=== PATIENT | female | born 1965 | race Caucasian/White ===

== ENCOUNTER 2018-01-01 11:03 | Emergency (ER) | payer OTHER ==
[2018-01-01 11:19] VITALS: BMI 25.4
--- NOTE | 2018-01-01 11:24 | PDOC ---
Attending Attestation - Resident Resident Name: Mariana Spencer - ED Attending Attestation I have performed the following: I have examined & evaluated the patient, The case was reviewed & discussed with the resident, I agree w/resident's findings & plan, Exceptions are as noted - HPI HPI: 01/01/18 11:24 52y F hx of asthma presents with intermittent abd pain that radiates to the R shoulder associated nbnb vomiting since last night. tolerating PO intake. Patient notes that the pain is in epigastrium and right upper quadrant, she notes that the pain was sharp and worse yesterday it is slightly improved today. Patient notes last episode of vomiting was last at approximately 11:00 she has not vomited since. Denies any fever, chills, chest pain, shortness of breath, diaphoresis, diarrhea, dysuria. On exam the patient is well-appearing, no acute distress abd exam reveals mild tenderness in the right upper quadrant and epigastrium, no rebound/guarding card: rrr, no mrg pulm: cta b/l differential for the patient's symptoms include possible pancreatitis, consider cholelithiasis, low suspicion possible ACS will obtain a EKG - Physicial Exam PE: 01/02/18 11:29 see above - Medical Decision Making 01/01/18 15:15 His blood work was reviewed was unremarkable pts US negative pt feeling better. tolerrating po intake here will dc with pmd fu return precuautions were discussed Heart Score/ECG Review - ECG Impressions Comment:: 01/01/18 12:31 Twelve-lead EKG was performed and reviewed by me. There is normal sinus rhythm with a rate of 59 The axis is normal. The intervals are normal. There is normal R wave progression There are no ST or T wave abnormalities. q wave in III
[2018-01-01] MEDS ORDERED: SODIUM CHLORIDE 0.9% 500 ML INFUS.BAG IV ONE (11:27)
[2018-01-01] MEDS ORDERED: ONDANSETRON 4 MG/2 ML VIAL IVPUSH ONE (11:28)
--- NOTE | 2018-01-01 11:28 | PDOC ---
History of Present Illness - General Chief Complaint: Pain Stated Complaint: ABD PAIN Time Seen by Provider: 01/01/18 11:10 - History of Present Illness Initial Comments: 01/01/18 11:30 Patient is a 52 year old female with a PMH of asthma who presents to our ED c/o 2 day h/o abdominal pain. Pain is epigastric, intermittent, "stabbing" and radiates to her R shoulder/back. Endorses multiple episodes of NBNB emesis. Tolerating PO intake, last BM was prior to presentation this morning and was normal. Patient notes she was at a family alliance party on Monday night consumed a large amount of wine. Patient cannot recall how much wine she drank but states she drank at least a bottle of red wine by herself. Denies any previous h/o similar pain. No family h/o cardiac issues. States she has not used her daily Ventolin inhaler for 1 week since she ran out of her medications. NKDA Surgical: hysterectomy Social: denies nicotine, denies recreational drugs, alcohol as noted in HPI PMD: Cannot recall name @ [facility] As per EMR, patient last evaluated in our ED in 01/2015 for headache which improved with symptomatic treatment. Past History - Past Medical History Allergies/Adverse Reactions: Allergies Allergy/AdvReac Type Severity Reaction Status Date / Time No Known Allergies Allergy Verified 01/01/18 12:07 Home Medications: Ambulatory Orders Acetaminophen/Caffeine/Butalb [Fioricet -] 1 tab PO Q6H #28 tablet 01/22/15 Anemia: Yes Asthma: Yes Cancer: No Cardiac Disorders: No CVA: No COPD: No CHF: No Dementia: No Diabetes: No GI Disorders: No Disorders: No HTN: No Hypercholesterolemia: No Liver Disease: No Seizures: No Thyroid Disease: No - Reproductive History (#): 7 Para: 5 Therapeutic (s) & number: Yes (2) - Suicide/Smoking/Psychosocial Hx Smoking History: Never smoked Have you smoked in the past 12 months: No Information on smoking cessation initiated: No Hx Alcohol Use: No Drug/Substance Use Hx: No Substance Use Type: None Hx Substance Use Treatment: No Review of Systems - Review of Systems Constitutional: No: Chills, Fever HEENTM: No: Blurred Vision, Double Vision Respiratory: Yes: Shortness of Breath. No: Cough Cardiac (ROS): No: Chest Pain, Lightheadedness, Palpitations ABD/GI: Yes: Nausea, Vomiting. No: Constipated, Diarrhea : No: Burning, Dysuria *Physical Exam - Vital Signs Last Vital Signs Temp Pulse Resp BP Pulse Ox 97.9 F 80 18 186/89 100 01/01/18 11:10 01/01/18 11:10 01/01/18 11:10 01/01/18 11:10 01/01/18 11:10 - Physical Exam General Appearance: Yes: Nourished, Appropriately Dressed HEENT: positive: EOMI, LUISA, Normal Voice, Hearing Grossly Normal Neck: positive: Trachea midline, Supple Respiratory/Chest: positive: Lungs Clear, Normal Breath Sounds. negative: Labored Respiration, Rapid RR, Crackles, Rales, Rhonchi, Stridor, Wheezing Cardiovascular: positive: S1, S2 ED Treatment Course - LABORATORY CBC & Chemistry Diagram: 01/01/18 11:26 01/01/18 11:26 Medical Decision Making - Medical Decision Making 01/01/18 11:43 52 year old female presents with abdominal pain. H/o recent binge drinking. No cardiac risk factors of smoking, HTN, obesity. VS unremarkable, epigastric TTP. Frontal diagnosis: alcoholic gastritis, pancreatitis, r/o ACS -- though less likely. Will obtain CBC, CMP, EKG, Troponin (x1) + IV fluids, Zofran. Reassess. 01/01/18 13:19 CBC, CMP unremarkable Lipase wnL As patient on re-exam c/o pain in RUQ, will evaluate for cholecystitis with RUQ ultrasound. 01/01/18 14:50 GB U/S negative for acute cholecystitis/biliary pathology 01/01/18 14:58 Patient symptomatically improved. Tolerating PO intake, ambulatory around unit. Will discharge home with return precautions and PMD follow-up. I discussed the physical exam findings, ancillary test results and final diagnoses with the patient. I answered all of the patient's questions. The patient was satisfied with the care received and felt comfortable with the discharge plan and treatment plan. The patient will return to the Emergency Department with any new, persistent or worsening symptoms. *DC/Admit/Observation/Transfer Diagnosis at time of Disposition: Abdominal pain - Discharge Dispostion Disposition: HOME Condition at time of disposition: Good Decision to Admit order: No - Referrals Referrals: Angus Ventura MD [Primary Care Provider] - - Patient Instructions Additional Instructions: You were evaluated today for your abdominal pain. All of your labs and an ultrasound of your abdomen showed no concerning findings. Increase your fluid intake and you can take Tylenol (up to 4000 mg daily) for your pain. Please follow-up with your primary care doctor in the next 2 days. A copy of your ultrasound and your labs have been provided to you. Please take these to your appointment. Also make sure to request refills of your asthma medication as needed. Return to the Emergency Department for any new/worsening/concerning symptoms. Hoy fuiste evaluado por tu dolor abdominal. Todos kari laboratorios y francia ecografa de spaulding abdomen no mostraron hallazgos preocupantes. Aumente spaulding consumo de lquidos y puede vibha Tylenol (hasta 4000 mg diarios) para spaulding dolor. Maulik un seguimiento con spaulding mdico de atencin primaria en los prximos 2 de la garza. Francia copia de spaulding ultrasonido y kari laboratorios le shore sido provistos. Por favor , llvelos a spaulding romina. Adems, asegrese de solicitar la reposicin de spaulding medicamento para el asma segn sea necesario. Regrese al Departamento de Emergencia para cualquier nuevo / empeoramiento / sntomas relacionados. - Post Discharge Activity
[2018-01-01 11:43] LABS: BASO % 0.8 % (0-2.0); EOS % 0.8 % (0-4.5); HEMATOCRIT 38.7 % (32.4-45.2); HEMOGLOBIN 13.2 GM/dL (10.7-15.3); LYMPH % 25.6 % (8-40); MCH 30.8 pg (25.7-33.7); MCHC 34.1 g/dl (32.0-36.0); MEAN CELL VOLUME 90.4 fl (80-96); NEUT % 67.8 % (42.8-82.8); PLATELET COUNT 278 K/MM3 (134-434); RBC 4.29 M/mm3 (3.60-5.2); RDW 13.6 % (11.6-15.6); WHITE BLOOD COUNT 10.7 K/mm3 (4.0-10.0)
[2018-01-01] MEDS ORDERED: ONDANSETRON 4 MG/2 ML VIAL ONE (11:59)
[2018-01-01 12:50] LABS: ALBUMIN 3.8 g/dl (3.4-5.0); ALK PHOS 90 U/L (45-117); ANION GAP 9 MMOL/L (8-16); BILIRUBIN,TOTAL 0.3 mg/dL (0.2-1); BLOOD UREA NITROGEN 12 mg/dL (7-18); CALCIUM 8.8 mg/dL (8.5-10.1); CHLORIDE 110 mmol/L (98-107); CO2 25 mmol/L (21-32); CREATININE 0.5 mg/dL (0.55-1.3); GLUCOSE,RANDOM 104 mg/dL (74-106); LIPASE 91 U/L (73-393); POTASSIUM 3.5 mmol/L (3.5-5.1); SGOT/AST 25 U/L (15-37); SGPT/ALT 31 U/L (13-61); SODIUM 144 mmol/L (136-145); TOT PROT 7.8 g/dl (6.4-8.2)
[2018-01-01 16:46] VITALS: BP 130/69; PULSE 74; TEMP 98
--- NOTE | 2018-01-01 18:07 | EKG ---
Test Reason : Blood Pressure : / mmHG Vent. Rate : 059 BPM Atrial Rate : 059 BPM P-R Int : 146 ms QRS Dur : 084 ms QT Int : 414 ms P-R-T Axes : 057 057 035 degrees QTc Int : 409 ms SINUS BRADYCARDIA WITH SINUS ARRHYTHMIA OTHERWISE NORMAL ECG WHEN COMPARED WITH ECG OF 28-NOV-2013 11:24, NO SIGNIFICANT CHANGE WAS FOUND Confirmed by MODE MIMS MD ([id number]) on 01/01/2018 6:06:52 PM Referred By: Confirmed By:MODE MIMS MD
== END 2018-01-01 15:09 | disposition home or self-care (01) ==
LOC: JER 11:03
PROC: 3E033GC Introduction of Other Therapeutic Substance into Peripheral Vein, Percutaneous Approach (ICD-10-PCS; principal; 2018-01-01)
DX: R10.9 Unspecified abdominal pain (principal)
CPT/HCPCS: 36415; 76705-TC; 80053; 82550; 82553; 83690; 84484; 85025; 93005; 93010; 96374; 99283-25

== ENCOUNTER 2018-01-03 11:53 | Emergency (ER) | payer OTHER ==
[2018-01-03 12:06] VITALS: TEMP 98; BMI 26.4
[2018-01-03] MEDS ORDERED: LACTATED RINGERS SOLUTION 1,000 ML IV STA (12:51)
[2018-01-03] MEDS ORDERED: ONDANSETRON 4 MG/2 ML VIAL IVPUSH ONE (12:51)
[2018-01-03] MEDS ORDERED: FAMOTIDINE 20 MG/50 ML IVPB 20 MG/50 ML MG IVPB ONE ×2 (12:51→13:26)
[2018-01-03] MEDS ORDERED: ONDANSETRON 4 MG/2 ML VIAL ONE (13:04)
[2018-01-03 13:32] LABS: BASO % 0.4 % (0-2.0); HEMATOCRIT 39.4 % (32.4-45.2); HEMOGLOBIN 13.3 GM/dL (10.7-15.3); LYMPH % 20.8 % (8-40); MCH 30.3 pg (25.7-33.7); MCHC 33.6 g/dl (32.0-36.0); MEAN CELL VOLUME 90.3 fl (80-96); MEAN PLT VOLUME 9.3 fl (7.5-11.1); MONO % 5.7 % (3.8-10.2); NEUT % 72.1 % (42.8-82.8); PLATELET COUNT 268 K/MM3 (134-434); RBC 4.37 M/mm3 (3.60-5.2); RDW 13.2 % (11.6-15.6); WHITE BLOOD COUNT 8.9 K/mm3 (4.0-10.0)
[2018-01-03] MEDS ORDERED: MAG HYDROX/AL HYDROX/SIMETH 30 ML UNIT-DOSE CUP PO ONE (13:59)
--- NOTE | 2018-01-03 14:01 | PDOC ---
History of Present Illness - General Chief Complaint: Pain Stated Complaint: REVISIT, ABD PAIN Time Seen by Provider: 01/03/18 12:53 - History of Present Illness Initial Comments: 01/03/18 14:21 Ms Diggs is a 52-year-old female, with a past medical history of anemia and asthma, who presents to the ED for 4 days of epigastric pain. The patient was seen in the ED on 01/01/18 with similar symptoms after binge drinking the night before. US was taken and was negative for biliary etiology or stones. She reports visiting her PCPs office on Monday where she was given anti-gas medication and told to follow up with GI for an endoscopy. The patient has an upcoming appointment with GI in January. She visited and Urgent Care because she was having persistent pain and was sent to the ED for an endoscopy. The patient denies any fever, chills, nausea, vomiting, diarrhea, or hematochezia. Past History - Past Medical History Allergies/Adverse Reactions: Allergies Allergy/AdvReac Type Severity Reaction Status Date / Time No Known Allergies Allergy Verified 01/03/18 12:00 Home Medications: Ambulatory Orders Famotidine [Pepcid -] 20 mg PO DAILY #14 tablet 01/03/18 Mag Hydrox/Al Hydrox/Simeth [Mylanta Suspension -] 30 ml PO Q6H #1 bottle Anemia: Yes Asthma: Yes Cancer: No Cardiac Disorders: No CVA: No COPD: No CHF: No Dementia: No Diabetes: No GI Disorders: No Disorders: No HTN: No Hypercholesterolemia: No Liver Disease: No Seizures: No Thyroid Disease: No - Reproductive History (#): 7 Para: 5 Therapeutic (s) & number: Yes (2) - Suicide/Smoking/Psychosocial Hx Smoking History: Never smoked Have you smoked in the past 12 months: No Hx Alcohol Use: No Drug/Substance Use Hx: No Substance Use Type: None Hx Substance Use Treatment: No Review of Systems - Review of Systems Able to Perform ROS?: Yes Comments:: 01/03/18 14:00 Constitutional: no fevers or chills. HEENT: no headache or dizziness. CVS: no cp or syncope. Resp: no sob. Abdomen: +abdominal pain, no nausea or vomiting, diarrhea or constipation. no bloody stools. : no urinary sx, hematuria. MUSCULOSKELETAL: No joint pain and swelling. No neck or back pain. SKIN: no redness or skin changes, no discharge, no rash. Hematologic: no easy bruising/bleeding. NEUROLOGIC: No headache, dizziness, LOC or altered mental status. No weakness, numbness or tingling. All other systems reviewed and negative, or as documented in HPI. *Physical Exam - Vital Signs Last Vital Signs Temp Pulse Resp BP Pulse Ox 98 F 70 16 161/92 99 01/03/18 12:00 01/03/18 12:00 01/03/18 12:00 01/03/18 12:00 01/03/18 12:00 - Physical Exam Comments: 01/03/18 14:00 General: Well appearing, awake and alert, NAD. HEENT: NCAT, PERRL, EOMI, clear conjunctiva, anicteric, moist mucus membranes, clear oropharynx, no oral lesions.. Neck: neck supple, FROM Resp: CTAB, normal and even respirations, no respiratory distress CVS: RRR, no murmurs, 2+ peripheral pulses throughout, no peripheral edema Abdomen: soft, +epigastric TTP, no rebound or guarding. no Santoyo's sign., no peritoneal signs. Back: nontender, normal inspection and ROM. No CVAT. MSK: no edema, THOMAS x4, ROM intact. No clubbing or cyanosis. normal bulk and tone. Neuro: alert, oriented appropriately. Skin: warm and well perfused, cap refill <2 sec, normal color 01/03/18 14:24 Heart Score/ECG Review - ECG Impressions Comment:: 01/03/18 14:07 EKG normal sinus rhythm, no interval abnormalities, narrow QRS, ST and T wave segments and morphology normal. Nonspecific T wave abnormalities in III, w/o contiguous lead changes. ED Treatment Course - LABORATORY CBC & Chemistry Diagram: 01/03/18 13:11 01/03/18 13:11 - ADDITIONAL ORDERS Additional order review: 01/03/18 13:11 RBC 4.37 MCV 90.3 MCHC 33.6 RDW 13.2 MPV 9.3 Neutrophils % 72.1 Lymphocytes % 20.8 Monocytes % 5.7 Eosinophils % 1.0 Basophils % 0.4 - Medications Given in the ED: ED Medications Discontinued Medications Generic Name Dose Route Start Last Admin Trade Name Freq PRN Reason Stop Dose Admin Lactated Ringer's 1,000 mls @ 1,000 mls/hr 01/03/18 12:51 01/03/18 13:25 Lactated Ringers Solution IV 01/03/18 13:50 1,000 mls/hr ONCE STA Administration Famotidine/Sodium Chloride 20 mg in 50 mls @ 100 mls/hr 01/03/18 12:51 13:31 Pepcid 20 Mg Premixed Ivpb - IVPB 01/03/18 13:20 100 mls/hr ONCE ONE Administration Ondansetron HCl 4 mg 01/03/18 12:51 01/03/18 13:25 Zofran Injection IVPUSH 01/03/18 12:52 4 mg ONCE ONE Administration Medical Decision Making - Medical Decision Making 01/03/18 14:06 Dontae 52 YOF with h/o Asthma presenting with epigastric AP x 4 days. Initially seen 01/01/18 with similar sx in setting of ETOH binge drinking, RUQ sono neg for biliary etiology/stones. Followed up with PMD< given anti-gas meds, told to f/u GI which she has appt for in January. Went to urgent care, sent here for Endoscopy. Denies bloody stools, v/d, fever or chills, cp or sob, urinary sx or neuro changes. Tolerating PO w/o difficulty, denies chronic NSAID use. DDx abdominal pain: GERD, PUD, esophageal spasm, pancreatitis, hepatitis, biliary colic, UTI, pyelonephritis ,medication side effect, hernia, -doubt appy or diverticulitis w/o Bm changes or lower quad tenderness, abdomen benign, with mild epigastric TTP w/o peritoneal findings or murphys sign. given pepcid, maalox, IVF, zofran, with clinical improvement. NAD, well appearing. abdomen soft and benign, non peritoneal to suggest intra abdominal pathology. Potassium repleted, requesting food and tolerating juice/crackers. Reassuringly had RUQ sono 2 days ago neg for pathology. no stones to suggest acute marty and neg for santoyo's sign. Basic labs including LFTs/lipase wnl, reassuring. trop neg, clinically doubt ACS or CVS pathology as no cp or sob.. EKG normal sinus rhythm, no interval abnormalities, narrow QRS, ST and T wave segments and morphology normal. Nonspecific T wave abnormalities in III, w/o contiguous lead changes. dispo: Pt to be discharged in stable condition. Patient and family made aware of impression and plan, return precautions discussed (including but not limited to worsening pain or symptoms), fevers, or signs of infection, chest pain, respiratory distress, inability to tolerate oral intake, bloody stools, Bowel movement changes, dehydration, syncope, or neurologic changes). Follow up with PMD and/or GI specialist as recommended, follow up information provided, take medications as instructed for duration of time. continue with supportive care, avoid triggers and precipitants. All questions answered to patient's satisfaction and expressed understanding and comfort with this. rx OTC pepcid and maalox PRN for sx, including heartburn. information provided in french. 01/03/18 14:21 *DC/Admit/Observation/Transfer Diagnosis at time of Disposition: Epigastric abdominal pain - Discharge Dispostion Disposition: HOME Condition at time of disposition: Good Decision to Admit order: No - Prescriptions Prescriptions: Famotidine [Pepcid -] 20 mg PO DAILY #14 tablet Mag Hydrox/Al Hydrox/Simeth [Mylanta Suspension -] 30 ml PO Q6H #1 bottle - Referrals Referrals: Rosalie Puckett DO [Staff Physician] - [facility] [Provider Group] Kirit Lemus MD [Staff Physician] - - Patient Instructions Printed Discharge Instructions: DI for Gastroesophageal Reflux Disease (GERD), DI for Abdominal Pain-Adult, GERD Diet Additional Instructions: Your laboratory / imaging results were normal, including enzymes for liver and pancreas and heart. you have no symptoms such as bleeding to warrant emergent endoscopy, follow up with your alarm adjuster for outpatient management and evaluation and endoscopy. your ultrasound from this week was negative for stones or gallbladder pathology. Follow up with your physician and consultants as instructed, take your medications as instructed including Pepcid daily, maalox or mylanta with your food 3-4 times per day, avoid precipitants such as anti inflammatories, fatty foods, spicy foods or triggers. Return if worsening symptoms including fevers, headache, vomiting, bleeding, bowel movement changes, worsening abdominal pain, fainting, dehydration, inability to take things by mouth/vomiting, altered mental status, or worsening concerning symptoms. your medications on discharge include pepcid and maalox over the counter, effects may improve your upset stomach, abdominal pain, vomiting, or diarrhea. do not drink alcohol with your medications. Kari resultados de laboratorio / imagen fueron normales, incluidas las enzimas para el hgado y el pncreas y el corazn. no tiene sntomas sandy hemorragia que justifique francia endoscopia de emergencia, maulik un seguimiento con spaulding gastroenterlogo para el manejo ambulatorio y evaluacin y endoscopia. spaulding ultrasonido de esta semana fue negativo para clculos o patologa de la vescula biliar. Maulik un seguimiento con spaulding mdico y consultores segn las instrucciones, tome kari medicamentos segn las instrucciones, incluyendo Pepcid daily, maalox o mylanta con kari alimentos 3-4 veces por da, evite precipitantes sandy antiinflamatorios, alimentos grasosos, comidas picantes o desencadenantes. Retorna si empeora los sntomas, incluyendo fiebre, dolor de malena, vmitos, hemorragia, cambios en el movimiento intestinal, empeoramiento del dolor abdominal, desmayos, deshidratacin, incapacidad para vibha cosas por la boca / vmitos, alteracin del estado mental o empeoramiento de los sntomas. kari medicamentos al momento del jonathan incluyen pepcid y maalox sin receta, los efectos pueden mejorar spaulding malestar estomacal, dolor abdominal, vmitos o diarrea. no bebas alcohol con tus medicamentos Print Language: CROATIAN - Post Discharge Activity - Attestations Physician Attestion: 01/03/18 14:01 I, Frannie Porras MD, attest that this document has been prepared under my direction and personally reviewed by me in its entirety. I further attest, that it accurately reflects all work, treatment, procedures and medical decision -making performed by me.
[2018-01-03 14:02] LABS: ALBUMIN 3.6 g/dl (3.4-5.0); ALK PHOS 98 U/L (45-117); ANION GAP 6 MMOL/L (8-16); BILIRUBIN,TOTAL 0.8 mg/dL (0.2-1); BLOOD UREA NITROGEN 7 mg/dL (7-18); CALCIUM 8.8 mg/dL (8.5-10.1); CHLORIDE 104 mmol/L (98-107); CO2 29 mmol/L (21-32); CREATININE 0.6 mg/dL (0.55-1.3); GLUCOSE,RANDOM 114 mg/dL (74-106); LIPASE 67 U/L (73-393); POTASSIUM 3.2 mmol/L (3.5-5.1); SGOT/AST 31 U/L (15-37); SGPT/ALT 46 U/L (13-61); SODIUM 140 mmol/L (136-145); TOT PROT 7.8 g/dl (6.4-8.2)
[2018-01-03] MEDS ORDERED: MAG HYDROX/AL HYDROX/SIMETH 30 ML UNIT-DOSE CUP ONE (14:04)
[2018-01-03] MEDS ORDERED: POTASSIUM CHLORIDE TABS 20 MEQ TABLET.ER (FP) PO ONE (14:07)
[2018-01-03 14:29] VITALS: BP 145/84; PULSE 84
--- NOTE | 2018-01-03 15:08 | EKG ---
Test Reason : Blood Pressure : / mmHG Vent. Rate : 076 BPM Atrial Rate : 076 BPM P-R Int : 148 ms QRS Dur : 086 ms QT Int : 382 ms P-R-T Axes : 039 036 037 degrees QTc Int : 429 ms NORMAL SINUS RHYTHM NORMAL ECG WHEN COMPARED WITH ECG OF 01-JAN-2018 12:29, NO SIGNIFICANT CHANGE WAS FOUND Confirmed by NIDHI KAY MD ([id number]) on 01/03/2018 3:07:55 PM Referred By: Confirmed By:NIDHI KAY MD
== END 2018-01-03 14:30 | disposition home or self-care (01) ==
LOC: JER 11:53
PROC: 3E033GC Introduction of Other Therapeutic Substance into Peripheral Vein, Percutaneous Approach (ICD-10-PCS; principal; 2018-01-03)
PROC: 3E0337Z Introduction of Electrolytic and Water Balance Substance into Peripheral Vein, Percutaneous Approach (ICD-10-PCS; 2018-01-03)
DX: R10.13 Epigastric pain (principal); J45.909 Unspecified asthma, uncomplicated
CPT/HCPCS: 36415; 80053; 83690; 84484; 85025; 93005; 93010; 99283-25

== ENCOUNTER 2018-11-23 15:17 | Emergency (ER) | payer OTHER ==
[2018-11-23 15:29] VITALS: BMI 26.2
--- NOTE | 2018-11-23 15:29 | PDOC ---
Rapid Medical Evaluation Chief Complaint: Back Pain Time Seen by Provider: 11/23/18 15:24 Medical Evaluation: Allergies Allergy/AdvReac Type Severity Reaction Status Date / Time No Known Allergies Allergy Verified 01/03/18 12:00 11/23/18 15:24 I have performed a brief in-person evaluation of this patient. The patient presents with a chief complaint of: left upper back pain worsening x 4 days- seen by PMD 3 days ago and referred to PT and seen yesterday. Now with some numbness to left flank/ and around to abd Pertinent physical exam findings: + palp tension and spasm. I have ordered the following: EKG The patient will proceed to the ED for further evaluation. Discharge Disposition - Diagnosis Back pain - Referrals - Patient Instructions - Post Discharge Activity
--- NOTE | 2018-11-23 17:27 | PDOC ---
History of Present Illness - General Chief Complaint: Pain Stated Complaint: ABD PAIN Time Seen by Provider: 11/23/18 15:24 History Source: Patient - History of Present Illness Initial Comments: 11/23/18 17:21 53 year old female c/o LUQ pain radiating to the back x 5 days.denies fever/ chills, nausea, vomiting, chest pain , URINARY SYMPTOMS. patient reports she has been exercising. denies trauma/ injury PMHX, hypertension 11/23/18 18:46 Past History - Past Medical History Allergies/Adverse Reactions: Allergies Allergy/AdvReac Type Severity Reaction Status Date / Time No Known Allergies Allergy Verified 11/23/18 15:26 Home Medications: Ambulatory Orders Cyclobenzaprine HCl 10 mg PO DAILY PRN 11/23/18 Ibuprofen 600 mg PO QID PRN #20 tablet 11/23/18 Anemia: Yes Asthma: Yes Cancer: No Cardiac Disorders: No CVA: No COPD: No CHF: No Dementia: No Diabetes: No GI Disorders: No Disorders: No HTN: No Hypercholesterolemia: No Liver Disease: No Seizures: No Thyroid Disease: No - Family Disease History Family Disease History: Other: Mother (hypertension. no cardiac history) - Reproductive History (#): 7 Para: 5 Therapeutic (s) & number: Yes (2) - Immunization History Immunization Up to Date: Yes - Suicide/Smoking/Psychosocial Hx Smoking History: Never smoked Have you smoked in the past 12 months: No Information on smoking cessation initiated: No Hx Alcohol Use: No Drug/Substance Use Hx: No Substance Use Type: None Hx Substance Use Treatment: No Review of Systems - Review of Systems Able to Perform ROS?: Yes Is the patient limited Kyrgyz proficient: No Constitutional: No: Symptoms Reported, See HPI, Chills, Diaphoresis, Fever, Loss of Appetite, Malaise, Night Sweats, Weakness, Weight Stable, Unintentional Wgt. Loss, Unexplained wgt Loss, Other Cardiac (ROS): No: Symptoms Reported, See HPI, Chest Pain, Edema, Irregular Heart Rate, Lightheadedness, Palpitations, Syncope, Chest Tightness, Other ABD/GI: Yes: Abdominal cramping *Physical Exam - Vital Signs Last Vital Signs Temp Pulse Resp BP Pulse Ox 98.0 F 86 16 122/91 96 11/23/18 15:26 11/23/18 15:26 11/23/18 15:26 11/23/18 15:26 11/23/18 15:26 - Physical Exam General Appearance: Yes: Appropriately Dressed Respiratory/Chest: positive: Chest Tender (left ed ), Lungs Clear, Normal Breath Sounds Cardiovascular: positive: Regular Rhythm, Regular Rate Gastrointestinal/Abdominal: positive: Normal Bowel Sounds, Soft. negative: Tender Extremity: positive: Normal Capillary Refill Integumentary: positive: Normal Color, Dry, Warm Neurologic: positive: Fully Oriented, Alert, Normal Mood/Affect Heart Score/ECG Review - History History: Slightly suspicious - Electrocardiogram EKG: Normal - Age Age: </= 45 - Risk Factors Risk Factors Heart Score: Yes Hx Hypertension Based on the list above the patient has:: 1-2 risk factors - Troponin Troponin: </= normal limit - Score Heart Score - Total: 1 - ECG Intrepretation Rhythm: Regular Rhythm Comment:: 11/23/18 18:57 NSR : 81 bpm ED Treatment Course - LABORATORY CBC & Chemistry Diagram: 11/23/18 17:34 11/23/18 17:34 Progress Note - Progress Note Progress Note: A: chest pain/ costochondritis P: cbc cmp chest xray cardiac enzymes *DC/Admit/Observation/Transfer Diagnosis at time of Disposition: Costochondral chest pain - Discharge Dispostion Disposition: HOME - Prescriptions Prescriptions: Ibuprofen 600 mg PO QID PRN #20 tablet PRN Reason: Pain - Referrals Referrals: Pratima Haque MD [Primary Care Provider] - 2 Days - Patient Instructions Printed Discharge Instructions: DI for Musculoskeletal Pain Additional Instructions: do light stretches Apply ice to the area for the first 24 hours. Then alternate with ice and heat after. Take ibuprofen every 6 hours as needed for pain. Take Flexeril as prescribed for muscle spasm. Flexeril can make you sleepy, do not drive or operate heavy machinery after taking the medication. Follow-up with an orthopedic doctor if symptoms persist. A referral was given to you today. Return to the emergency room for any worsening symptoms. - Post Discharge Activity Forms/Work/School Notes: Back to Work
[2018-11-23 17:49] LABS: URINE APPEARANCE CLEAR; URINE BILIRUBIN NEGATIVE (NEGATIVE); URINE COLOR YELLOW; URINE GLUCOSE (UA) NEGATIVE (NEGATIVE); URINE KETONE NEGATIVE (NEGATIVE); URINE LEUK ESTERASE NEGATIVE (NEGATIVE); URINE NITRITE NEGATIVE (NEGATIVE); URINE PROTEIN NEGATIVE (NEGATIVE); URINE UROBILINOGEN 0.2 mg/dL (0.2-1.0)
[2018-11-23 17:52] LABS: BASO % 0.6 % (0-2.0); EOS % 4.6 % (0-4.5); HEMATOCRIT 36.6 % (32.4-45.2); HEMOGLOBIN 12.4 GM/dL (10.7-15.3); LYMPH % 31.1 % (8-40); MCH 30.7 pg (25.7-33.7); MCHC 33.9 g/dl (32.0-36.0); MEAN CELL VOLUME 90.5 fl (80-96); MEAN PLT VOLUME 9.1 fl (7.5-11.1); MONO % 5.5 % (3.8-10.2); NEUT % 58.2 % (42.8-82.8); PLATELET COUNT 292 K/MM3 (134-434); RBC 4.05 M/mm3 (3.60-5.2); RDW 13.3 % (11.6-15.6); WHITE BLOOD COUNT 6.4 K/mm3 (4.0-10.0)
[2018-11-23 18:09] LABS: ALBUMIN 3.8 g/dl (3.4-5.0); BILIRUBIN,TOTAL 0.2 mg/dL (0.2-1); BLOOD UREA NITROGEN 11.8 mg/dL (7-18); CREATININE 0.7 mg/dL (0.55-1.3); POTASSIUM 3.7 mmol/L (3.5-5.1); TOT PROT 7.9 g/dl (6.4-8.2)
[2018-11-23 18:11] LABS: LIPASE 116 U/L (73-393)
[2018-11-23] MEDS ORDERED: KETOROLAC TROMETHAMINE 30 MG/1 ML VIAL IVPUSH ONE (18:33)
[2018-11-23] MEDS ORDERED: KETOROLAC TROMETHAMINE 30 MG/1 ML VIAL IM ONE (18:37)
[2018-11-23] MEDS ORDERED: KETOROLAC TROMETHAMINE 30 MG/1 ML VIAL ONE (18:39)
[2018-11-23 19:03] VITALS: BP 140/83; PULSE 70; TEMP 97.7
--- NOTE | 2018-11-25 11:40 | EKG ---
Test Reason : Blood Pressure : / mmHG Vent. Rate : 081 BPM Atrial Rate : 081 BPM P-R Int : 136 ms QRS Dur : 086 ms QT Int : 380 ms P-R-T Axes : 058 065 032 degrees QTc Int : 441 ms NORMAL SINUS RHYTHM NORMAL ECG WHEN COMPARED WITH ECG OF 03-JAN-2018 13:40, NO SIGNIFICANT CHANGE WAS FOUND Confirmed by CLEVE CLEMENS MD ([id number]) on 11/25/2018 11:40:31 AM Referred By: Confirmed By:CLEVE CLEMENS MD
== END 2018-11-23 19:20 | disposition home or self-care (01) ==
LOC: JER 15:17
PROC: 3E0233Z Introduction of Anti-inflammatory into Muscle, Percutaneous Approach (ICD-10-PCS; principal; 2018-11-23)
DX: R07.1 Chest pain on breathing (principal); I10 Essential (primary) hypertension; J45.909 Unspecified asthma, uncomplicated
CPT/HCPCS: 36415; 71046-TC-FY; 80053; 81003; 82550; 82553; 83690; 84484; 85025; 93005; 93010; 96372; 99283-25

== ENCOUNTER 2020-01-19 10:11 | Emergency (ER) | payer OTHER ==
[2020-01-19 10:17] VITALS: BP 135/82; PULSE 82; TEMP 98; BMI 27.3
--- NOTE | 2020-01-19 10:43 | PDOC ---
History of Present Illness - General Chief Complaint: Respiratory Stated Complaint: ASTHMA/ COLD SYMPTOMS Time Seen by Provider: 01/19/20 10:20 History Source: Patient Exam Limitations: No Limitations - History of Present Illness Initial Comments: 01/19/20 10:37 54-year-old [place]-speaking female with history of asthma presents complaining of runny nose, nasal congestion, dry cough since yesterday. Reports slight nausea this morning when coughing, used her nebulizer machine this morning with relief of symptoms. States at home has dry cough x 5 days. denies shortness of breath, chest pain, vomiting, diarrhea, abdominal pain, back pain, fever, chills or any other complaint. Patient took an uwui-rey-lyijsuu medication yesterday (does not recall the name of the medication) which has not improved her symptoms. ROS: as above PE: GENERAL: well-appearing, NAD HEAD: NCAT EYES: Pupils equal, round and reactive to light, sclera anicteric, conjunctiva clear ENT: pharynx: no erythema, no exudate, uvula midline NECK: supple CHEST: nontender RESP: clear, no w/r/r CARDIO: rrr, no m/g/r ABD: +BS, soft, nontender, non distended BACK: no midline spinal ttp, no CVAT EXTREMITIES: Normal range of motion, no edema NEUROLOGICAL: Normal speech, normal gait SKIN: Warm, Dry Is this a multiple visit Asthma Patient?: No Past History - Medical History Allergies/Adverse Reactions: Allergies Allergy/AdvReac Type Severity Reaction Status Date / Time No Known Allergies Allergy Verified 01/19/20 10:16 Home Medications: Ambulatory Orders Cyclobenzaprine HCl 10 mg PO DAILY PRN 11/23/18 Ibuprofen 600 mg PO QID PRN #20 tablet 11/23/18 Prednisone [Prednisone 50 MG TABLETS] 50 mg PO ONCE 4 Days #4 tablet 01/19/20 Anemia: Yes Asthma: Yes Cancer: No Cardiac Disorders: No CVA: No COPD: No CHF: No Dementia: No Diabetes: No GI Disorders: No Disorders: No HTN: Yes Hypercholesterolemia: No Liver Disease: No Seizures: No Thyroid Disease: No - Reproductive History Is Patient Now?: No (#): 7 Para: 5 Therapeutic (s) & number: Yes (2) - Immunization History Immunization Up to Date: Yes - Psycho-Social/Smoking History Smoking History: Never smoked Have you smoked in the past 12 months: No *Physical Exam - Vital Signs Last Vital Signs Temp Pulse Resp BP Pulse Ox 98 F 82 18 135/82 99 01/19/20 10:14 01/19/20 10:14 01/19/20 10:14 01/19/20 10:14 01/19/20 10:14 Medical Decision Making - Medical Decision Making 01/19/20 10:42 54-year-old [place]-speaking female with history of asthma presents complaining of runny nose, nasal congestion, dry cough since yesterday. Reports slight nausea this morning when coughing, used her nebulizer machine this morning with relief of symptoms. States at home has dry cough x 5 days. denies shortness of breath, chest pain, vomiting, diarrhea, abdominal pain, back pain, fever, chills or any other complaint. Patient took an nnkz-xsj-bqjiisu medication yesterday (does not recall the name of the medication) which has not improved her symptoms. Speaking full sentences Clear lungs Well-appearing Scheduled to follow-up with PMD February 11, 2020 Will prescribe short course of prednisone for early asthma exacerbation Use albuterol MDI 1 to 2 puffs every 6 hours as needed Advised to take Benadryl 25 mg at night as needed for rhinorrhea and nasal congestion Return to ED if fever, chills, chest pain, shortness of breath or any concerning symptom 01/19/20 10:44 Discharge - Discharge Information Problems reviewed: Yes Clinical Impression/Diagnosis: Cough, Seasonal allergies Condition: Stable Disposition: HOME - Admission No - Follow up/Referral - Patient Discharge Instructions Additional Instructions: Use your albuterol MDI 1 to 2 puffs as needed every 6 hours Prednisone 50 mg 1 tablet daily x 4 days Take Benadryl 25 mg 1 tablet at night Keep your appointment scheduled with your doctor February 11, 2020 Return to the emergency department if chest pain, shortness of breath, fever, chills or worsening symptoms - Post Discharge Activity Work/Back to School Note: Back to Work
--- OUTSIDE RECORDS SUMMARY | 2020-01-19 10:45 | XMS ---
:1965 Author Organization [facility] Care Team Providers Name Role Phone NISHI PARKER Unavailable Unavailable JULEE NEGRETE Unavailable Unavailable Re-disclosure Warning The records that you are about to access may contain information from federally- assisted alcohol or drug abuse programs. If such information is present, then the following federally mandated warning applies: This information has been disclosed to you from records protected by federal confidentiality rules (42 CFR part 2). The federal rules prohibit you from making any further disclosure of this information unless further disclosure is expressly permitted by the written consent of the person to whom it pertains or as otherwise permitted by 42 CFR part 2. A general authorization for the release of medical or other information is NOT sufficient for this purpose. The Federal rules restrict any use of the information to criminally investigate or prosecute any alcohol or drug abuse patient.The records that you are about to access may contain highly sensitive health information, the redisclosure of which is protected by Article 27-F of the [facility] Public Health law. If you continue you may haveaccess to information: Regarding HIV / AIDS; Provided by facilities licensed or operated by the [facility] Office of Mental Health; or Provided by the [facility] Office for People With Developmental Disabilities. If such information is present, then the following [facility] mandated warning applies: This information has been disclosed to you from confidential records which are protected by state law. State law prohibits you from making any further disclosure of this information without the specific written consent of the person to whom it pertains, or as otherwise permitted by law. Any unauthorized further disclosure in violation of state law may result in a fine or correction sentence or both. A general authorization for the release of medical or other information is NOT sufficient authorization for further disclosure. Encounters Encounter Providers Location Date Indications Data Source(s ) Outpatient Attender: JULEE Rodgers 05/20/2019 [facility] [place] 08:16:[facility] DANUTAAdmitter: FRAN SAGEUTAReferrer: NISHI PARKER 05/20/2019 [facility] 12:00:00 AM Medical Mj r EST Outpatient [facility] 02/01/2019 eCW3 ([facility] 12:00:00 AM [facility]T - [facility]) 02/01/2019 12:00:00 AM EDT Outpatient [facility] 01/08/2019 eCW3 ([facility] 12:00:00 AM [facility] - [facility]) 01/08/2019 12:00:00 AM EDT Outpatient [facility] 11/29/2018 eCW3 ([facility] 12:00:00 AM [facility] - [facility]) 11/29/2018 12:00:00 AM EDT Outpatient [facility] 11/21/2018 eCW3 ([facility] 12:00:00 AM [facility] - [facility]) 11/21/2018 12:00:00 AM EDT Immunizations Vaccine Date Status Description Data Source(s) New in 2011. IIV4 01/08/2019 11:38:00 completed eC W3 ([facility] Care) New in 2011. IIV4 01/08/2019 11:38:00 completed eC W3 ([facility]) Medications Medication Brand Start Product Dose Route Administrative Pharmacy [facility] Indications Reaction Description Data Name Date Form Instructions Instructions Source(s) 2 ML Ketoro 2.0 active Ketorolac eCW3 Ketorolac lac 2019 {ml} Tromethamine ([facility] Tromethamin Tromet 12:00: 60 MG/2ML [place] e 30 MG/ML hamine 00 AM Health Cartridge 60 EDT Care) Ketorolac MG/2ML Tromethamin e 60 MG/2ML 2 ML Ketoro 2.0 active Ketorolac eCW3 Ketorolac lac 2020 {ml} Tromethamine ([facility] Tromethamin Tromet 12:00: 60 MG/2ML [place] e 30 MG/ML hamine 00 AM Health Cartridge 60 EDT Care) Ketorolac MG/2ML Tromethamin e 60 MG/2ML 120 ACTUAT Floven 1.0 suspend Flovent HFA eCW3 Fluticasone t HFA 2020 {puff ed 110 MCG/ACT ([place] propionate 110 12:00: } [place] 0.11 MCG/AC 00 AM Health MG/ACTUAT T EDT Care) Metered Dose Inhaler [Flovent] Flovent HFA 110 MCG/ACT 120 ACTUAT Floven 1.0 suspend Flovent HFA eCW3 Fluticasone t HFA 2020 {puff ed 110 MCG/ACT ([place] propionate 110 12:00: } [place] 0.11 MCG/AC 00 AM Health MG/ACTUAT T EDT Care) Metered Dose Inhaler [Flovent] Flovent HFA 110 MCG/ACT 120 ACTUAT Floven 1.0 suspend Flovent HFA eCW3 Fluticasone t HFA 2020 {puff ed 110 MCG/ACT ([place] propionate 110 12:00: } [place] 0.11 MCG/AC 00 AM Health MG/ACTUAT T EDT Care) Metered Dose Inhaler [Flovent] Flovent HFA 110 MCG/ACT 120 ACTUAT Floven 1.0 suspend Flovent HFA eCW3 Fluticasone t HFA 2020 {puff ed 110 MCG/ACT ([place] propionate 110 12:00: } [place] 0.11 MCG/AC 00 AM Health MG/ACTUAT T EDT Care) Metered Dose Inhaler [Flovent] Flovent HFA 110 MCG/ACT Naproxen Naprox 07/24/ active Naproxen 5 00 eCW3 500 MG Oral en 500 2020 MG ([facility] Tablet MG 12:00: [place] 00 AM Health EDT Care) Cyclobenzap Cyclob 07/24/ 1.0 active Cyclobe nzapr eCW3 rine enzapr 2020 {tabl ine HCl 10 ([facility] hydrochlori ine 12:00: et_at MG [place] de 10 MG HCl 10 00 AM _bedt Health Oral Tablet MG EDT ime_a Care) Cyclobenzap s_nee rine HCl 10 ded} MG Artificial Artifi 06/26/ active Artifici al eCW3 Tears 1-0.3 cial 2020 Tears 1-0.3 ( [place] % Tears 12:00: % [place] 1-0.3 00 AM Health % EDT Care) Artificial UNK 06/26/ active Artificial eCW3 Tear 2020 Tear ([place] Ointment - 12:00: Ointment - R iver 00 AM Health EDT Care) Artificial UNK 06/26/ active Artificial eCW3 Tear 2020 Tear ([place] Ointment - 12:00: Ointment - R iver 00 AM Health EDT Care) Artificial UNK 06/26/ active Artificial eCW3 Tear 2020 Tear ([place] Ointment - 12:00: Ointment - R iver 00 AM Health EDT Care) Artificial UNK 06/26/ active Artificial eCW3 Tear 2020 Tear ([place] Ointment - 12:00: Ointment - R iver 00 AM Health EDT Care) Artificial Artifi 06/26/ active Artifici al eCW3 Tears 1-0.3 cial 2020 Tears 1-0.3 ( [place] % Tears 12:00: % [place] 1-0.3 00 AM Health % EDT Care) Artificial Artifi 06/26/ active Artifici al eCW3 Tears 1-0.3 cial 2020 Tears 1-0.3 ( [place] % Tears 12:00: % [place] 1-0.3 00 AM Health % EDT Care) Artificial Artifi 06/26/ active Artifici al eCW3 Tears 1-0.3 cial 2020 Tears 1-0.3 ( [place] % Tears 12:00: % [place] 1-0.3 00 AM Health % EDT Care) Artificial Artifi 06/26/ active Artifici al eCW3 Tears 1-0.3 cial 2020 Tears 1-0.3 ( [place] % Tears 12:00: % [place] 1-0.3 00 AM Health % EDT Care) Artificial Artifi 06/26/ active Artifici al eCW3 Tears 1-0.3 cial 2020 Tears 1-0.3 ( [place] % Tears 12:00: % [place] 1-0.3 00 AM Health EDT Care) Artificial UNK 06/26/ active Artificial eCW3 Tear 2020 Tear ([place] Ointment - 12:00: Ointment - R iver 00 AM Health EDT Care) Artificial UNK 06/26/ active Artificial eCW3 Tear 2020 Tear ([place] Ointment - 12:00: Ointment - R iver 00 AM Health EDT Care) Lidocaine 5 Lidoca 05/16/ active Lidocai ne 5 eCW3 % ine 5 2020 % ([place] % 12:00: [place] 00 AM Health EST Care) Calcium 600 Calciu 1.0 active Calcium 600 eCW3 MG m 600 2019 {tabl MG ([place] MG 12:00: et_wi [place] 00 AM [facility] Health EST als} Care) Calcium 600 Calciu 1.0 active Calcium 600 eCW3 MG m 600 2020 {tabl MG ([place] MG 12:00: et_wi [place] 00 AM [facility] Health EST als} Care) Lidocaine 5 Lidoca 05/16/ active Lidocai ne 5 eCW3 % ine 5 2020 % ([place] % 12:00: [place] 00 AM Health EST Care) Calcium 600 Calciu 1.0 active Calcium 600 eCW3 MG m 600 2020 {tabl MG ([place] MG 12:00: et_wi [place] 00 AM [facility] EST als} Care) Calcium 600 Calciu 1.0 active Calcium 600 eCW3 MG m 600 2020 {tabl MG ([place] MG 12:00: et_wi [place] 00 AM [facility] Health EST als} Care) Calcium 600 Calciu 1.0 active Calcium 600 eCW3 MG m 600 2020 {tabl MG ([place] MG 12:00: et_wi [place] 00 AM [facility] Health EST als} Care) Calcium 600 Calciu 1.0 active Calcium 600 eCW3 MG m 600 2020 {tabl MG ([place] MG 12:00: et_wi [place] 00 AM [facility] Health EST als} Care) Lidocaine 5 Lidoca 05/16/ suspend Lidoca ine 5 eCW3 % ine 5 2020 ed % ([place] % 12:00: [place] 00 AM Health EST Care) Calcium 600 Calciu .0 active Calcium 600 eCW3 MG m 600 2019 {tabl MG ([place] MG 12:00: et_wi [place] 00 AM [facility] Health EST als} Care) ciclopirox Ciclop .0 active Ciclopir ox eCW3 7.7 MG/ML irox 2019 {appl Olamine 0.77 ( [place] Topical Olamin 12:00: icati % [place] Cream e 0.77 00 AM on} Health Ciclopirox % EST Care) Olamine 0.77 % ciclopirox Ciclop .0 active Ciclopir ox eCW3 7.7 MG/ML irox 2020 {appl Olamine 0.77 ( [place] Topical Olamin 12:00: icati % [place] Cream e 0.77 00 AM on} Health Ciclopirox % EST Care) Olamine 0.77 % Symbicort UNK 2.0 active Symbicort e CW3 160-4.5 2018 {puff 160-4.5 ([place] MCG/ACT 12:00: s} MCG/ACT [place] 00 AM Health EST Care) 60 ACTUAT Advair .0 suspend Advair e CW3 Fluticasone Diskus 2018 {puff ed Diskus ([facility] propionate 100-50 12:00: } 100-50 Steve er 0.1 MCG/DO 00 AM MCG/DOSE Health MG/ACTUAT / SE EST Care) salmeterol 0.05 MG/ACTUAT Dry Powder Inhaler [Advair] Advair Diskus 100-50 MCG/DOSE Zithromax Zithro 03/15/ suspend Zithroma x eCW3 Z-Turner 250 max 2019 ed Z-Turner 250 mg ([facility] mg Z-Turner 12:00: [place] 250 mg 00 AM Health EST Care) Solu-Medrol Solu-M 03/15/ suspend Solu-M edrol eCW3 125 MG edrol 2018 ed 125 MG ([place] 125 MG 12:00: [place] 00 AM Health EST Care) Solu-Medrol UNK 03/15/ suspend Solu-Med rol eCW3 125 MG 2019 ed 125 MG ([place] 12:00: [place] 00 AM Health EST Care) 60 ACTUAT Advair 1.0 active Advair eC W3 Fluticasone Diskus 2019 {puff Diskus ([facility] propionate 100-50 12:00: } 100-50 Steve er 0.1 MCG/DO 00 AM MCG/DOSE Health MG/ACTUAT / SE EST Care) salmeterol 0.05 MG/ACTUAT Dry Powder Inhaler [Advair] Advair Diskus 100-50 MCG/DOSE Solu-Medrol Solu-M 03/15/ suspend Solu-M edrol eCW3 125 MG edrol 2019 ed 125 MG ([place] 125 MG 12:00: [place] 00 AM Health EST Care) Albuterol Ipratr 3.0 active Ipratropi um- eCW3 0.833 MG/ML opium- 2019 {ml_a Albuterol ([place] / [place] 12:00: s_nee 0.5-2.5 (3) Steve er Ipratropium rol 00 AM ded} MG/3ML Healt [facility] [place] 0.5-2. EST Care) 0.167 MG/ML 5 (3) Inhalant MG/3ML Solution Ipratropium -Albuterol 0.5-2.5 (3) MG/3ML Albuterol Ipratr 3.0 active Ipratropi um- eCW3 0.833 MG/ML opium- 2018 {ml_a Albuterol ([place] / [place] 12:00: s_nee 0.5-2.5 (3) Steve er Ipratropium rol 00 AM ded} MG/3ML Healt h [place] 0.5-2. EST Care) 0.167 MG/ML 5 (3) Inhalant MG/3ML Solution Ipratropium -Albuterol 0.5-2.5 (3) MG/3ML Advair UNK 1.0 active Advair eCW3 Diskus 2018 {puff Diskus ([place] 100-50 12:00: } 100-50 [place] MCG/DOSE 00 AM MCG/DOSE Health EST Care) 60 ACTUAT Advair 1.0 suspend Advair e CW3 Fluticasone Diskus 2018 {puff ed Diskus ([facility] propionate 100-50 12:00: } 100-50 Steve er 0.1 MCG/DO 00 AM MCG/DOSE Health MG/ACTUAT / SE EST Care) salmeterol 0.05 MG/ACTUAT Dry Powder Inhaler [Advair] Advair Diskus 100-50 MCG/DOSE Albuterol Ipratr 3.0 active Ipratropi um- eCW3 0.833 MG/ML opium- 2018 {ml_a Albuterol ([place] / [place] 12:00: s_nee 0.5-2.5 (3) Steve er Ipratropium rol 00 AM ded} MG/3ML Healt h [place] 0.5-2. EST Care) 0.167 MG/ML 5 (3) Inhalant MG/3ML Solution Ipratropium -Albuterol 0.5-2.5 (3) MG/3ML Albuterol Ipratr .0 suspend Ipratrop ium- eCW3 0.833 MG/ML opium- 2018 {ml_a ed Albuterol ([place] / [place] 12:00: s_nee 0.5-2.5 (3) Steve er Ipratropium rol 00 AM ded} MG/3ML Healt [facility] [place] 0.5-2. EST Care) 0.167 MG/ML 5 (3) Inhalant MG/3ML Solution Ipratropium -Albuterol 0.5-2.5 (3) MG/3ML Zithromax UNK 03/15/ suspend Zithromax eCW3 Z-Turner 250 2019 ed Z-Turner 250 mg ([facility] mg 12:00: [facility] 00 AM Health EST Care) Albuterol Ipratr 3.0 active Ipratropi um- eCW3 0.833 MG/ML opium- 2018 {ml_a Albuterol ([place] / [place] 12:00: s_nee 0.5-2.5 (3) Steve er Ipratropium rol 00 AM ded} MG/3ML Healt [facility] [place] 0.5-2. EST Care) 0.167 MG/ML 5 (3) Inhalant MG/3ML Solution Ipratropium -Albuterol 0.5-2.5 (3) MG/3ML Albuterol Ipratr 3.0 suspend Ipratrop ium- eCW3 0.833 MG/ML opium- 2019 {ml_a ed Albuterol ([place] / [place] 12:00: s_nee 0.5-2.5 (3) Steve er Ipratropium rol 00 AM ded} MG/3ML [facility]alt [facility] [place] 0.5-2. EST Care) 0.167 MG/ML 5 (3) Inhalant MG/3ML Solution Ipratropium -Albuterol 0.5-2.5 (3) MG/3ML 60 ACTUAT Advair .0 active Advair eC W3 Fluticasone Diskus 2019 {puff Diskus ([facility] propionate 100-50 12:00: } 100-50 Steve er 0.1 MCG/DO 00 AM MCG/DOSE Health MG/ACTUAT / SE EST Care) salmeterol 0.05 MG/ACTUAT Dry Powder Inhaler [Advair] Advair Diskus 100-50 MCG/DOSE Solu-Medrol Solu-M 03/15/ suspend Solu-M edrol eCW3 125 MG edrol 2018 ed 125 MG ([place] 125 MG 12:00: [place] 00 AM Health EST Care) Zithromax Zithro 03/15/ suspend Zithroma x eCW3 Z-Turner 250 max 2019 ed Z-Turner 250 mg ([facility] mg Z-Turner 12:00: [place] 250 mg 00 AM Health EST Care) 60 ACTUAT Advair 1.0 suspend Advair e CW3 Fluticasone Diskus 2019 {puff ed Diskus ([facility] propionate 100-50 12:00: } 100-50 Steve er 0.1 MCG/DO 00 AM MCG/DOSE Health MG/ACTUAT / SE EST Care) salmeterol 0.05 MG/ACTUAT Dry Powder Inhaler [Advair] Advair Diskus 100-50 MCG/DOSE 60 ACTUAT Advair 1.0 suspend Advair e CW3 Fluticasone Diskus 2019 {puff ed Diskus ([facility] propionate 100-50 12:00: } 100-50 Steve er 0.1 MCG/DO 00 AM MCG/DOSE Health MG/ACTUAT / SE EST Care) salmeterol 0.05 MG/ACTUAT Dry Powder Inhaler [Advair] Advair Diskus 100-50 MCG/DOSE Albuterol Ipratr 3.0 active Ipratropi um- eCW3 0.833 MG/ML opium- 2018 {ml_a Albuterol ([place] / [place] 12:00: s_nee 0.5-2.5 (3) Steve er Ipratropium rol 00 AM ded} MG/3ML [facility]alt [facility] [place] 0.5-2. EST Care) 0.167 MG/ML 5 (3) Inhalant MG/3ML Solution Ipratropium -Albuterol 0.5-2.5 (3) MG/3ML Ipratropium UNK 3.0 active Ipratropi um- eCW3 -Albuterol 2018 {ml_a Albuterol ([facility] d[facility] 0.5-2.5 (3) 12:00: s_nee 0.5-2.5 (3 ) [place] MG/3ML 00 AM ded} MG/3ML Health EST Care) Albuterol Ipratr 3.0 active Ipratropi um- eCW3 0.833 MG/ML opium- 2018 {ml_a Albuterol ([place] / [place] 12:00: s_nee 0.5-2.5 (3) Steve er Ipratropium rol 00 AM ded} MG/3ML [facility]alt [facility] [place] 0.5-2. EST Care) 0.167 MG/ML 5 (3) Inhalant MG/3ML Solution Ipratropium -Albuterol 0.5-2.5 (3) MG/3ML Zithromax Zithro 03/15/ suspend Zithroma x eCW3 Z-Turner 250 max 2019 ed Z-Turner 250 mg ([facility] mg Z-Turner 12:00: [place] 250 mg 00 AM Health EST Care) Ipratropium UNK 3.0 suspend Ipratrop ium- eCW3 -Albuterol 2019 {ml_a ed Albuterol ([facility] d[facility] 0.5-2.5 (3) 12:00: s_nee 0.5-2.5 (3 ) [place] MG/3ML 00 AM ded} MG/3ML Health EST Care) Albuterol Ipratr 3.0 suspend Ipratrop ium- eCW3 0.833 MG/ML opium- 2019 {ml_a ed Albuterol ([place] / [place] 12:00: s_nee 0.5-2.5 (3) Steve er Ipratropium rol 00 AM ded} MG/3ML [facility]alt [facility] [place] 0.5-2. EST Care) 0.167 MG/ML 5 (3) Inhalant MG/3ML Solution Ipratropium -Albuterol 0.5-2.5 (3) MG/3ML Albuterol Ipratr 3.0 active Ipratropi um- eCW3 0.833 MG/ML opium- 2019 {ml_a Albuterol ([place] / [place] 12:00: s_nee 0.5-2.5 (3) Steve er Ipratropium rol 00 AM ded} MG/3ML Healt [facility] [place] 0.5-2. EST Care) 0.167 MG/ML 5 (3) Inhalant MG/3ML Solution Ipratropium -Albuterol 0.5-2.5 (3) MG/3ML 60 ACTUAT Advair 1.0 active Advair eC W3 Fluticasone Diskus 2019 {puff Diskus ([facility] propionate 100-50 12:00: } 100-50 Steve er 0.1 MCG/DO 00 AM MCG/DOSE Health MG/ACTUAT / SE EST Care) salmeterol 0.05 MG/ACTUAT Dry Powder Inhaler [Advair] Advair Diskus 100-50 MCG/DOSE Albuterol UNK 2.0 active Albuterol e CW3 Sulfate 108 2018 {puff Sulfate 108 ([place] (90 Base) 12:00: s_as_ (90 Base) Ri dave MCG/ACT 00 AM neede MCG/ACT Health EST d} Care) Albuterol UNK 3.0 suspend Albuterol eCW3 Sulfate 2019 {ml_a ed Sulfate (2.5 ([facility] d[facility] (2.5 12:00: s_nee MG/3ML) [place] MG/3ML) 00 AM ded} 0.083% Health 0.083% EST Care) levocetiriz Levoce 1.0 suspend Levoce tirizi eCW3 ine tirizi 2019 {tabl ed ne ([place] dihydrochlo ne 12:00: et_in Dihydrochl or [place] ride 5 MG Dihydr 00 AM _the_ brandon 5 MG He alth Oral Tablet ochlor EST eveni Care) Levocetiriz brandon 5 ng} ine MG Dihydrochlo ride 5 MG Albuterol [place] 3.0 active Albuterol eCW3 0.83 MG/ML rol 2018 {ml_a Sulfate (2.5 ([place] Inhalant Sulfat 12:00: s_nee MG/3ML) Steve er Solution e (2.5 00 AM ded} 0.083% Health Albuterol MG/3ML EST Care) Sulfate ) (2.5 0.083% MG/3ML) 0.083% levocetiriz Levoce .0 suspend Levoce tirizi eCW3 ine tirizi 2019 {tabl ed ne ([place] dihydrochlo ne 12:00: et_in Dihydrochl or [place] ride 5 MG Dihydr 00 AM _the_ brandon 5 MG He alth Oral Tablet ochlor EST eveni Care) Levocetiriz brandon 5 ng} ine MG Dihydrochlo ride 5 MG Albuterol UNK 2.0 active Albuterol e CW3 Sulfate 108 2019 {puff Sulfate 108 ([place] (90 Base) 12:00: s_as_ (90 Base) Ri dave MCG/ACT 00 AM neede MCG/ACT Health EST d} Care) Albuterol [place] 3.0 suspend Albutero l eCW3 0.83 MG/ML rol 2018 {ml_a ed Sulfate (2.5 ([place] Inhalant Sulfat 12:00: s_nee MG/3ML) Steve er Solution e (2.5 00 AM ded} 0.083% Health Albuterol MG/3ML EST Care) Sulfate ) (2.5 0.083% MG/3ML) 0.083% Albuterol UNK 2.0 active Albuterol e CW3 Sulfate 108 2019 {puff Sulfate 108 ([place] (90 Base) 12:00: s_as_ (90 Base) Ri dave MCG/ACT 00 AM neede MCG/ACT Health EST d} Care) Albuterol UNK 2.0 active Albuterol e CW3 Sulfate 108 2019 {puff Sulfate 108 ([place] (90 Base) 12:00: s_as_ (90 Base) Ri dave MCG/ACT 00 AM neede MCG/ACT Health EST d} Care) Albuterol UNK .0 active Albuterol e CW3 Sulfate 108 2019 {puff Sulfate 108 ([place] (90 Base) 12:00: s_as_ (90 Base) Ri dave MCG/ACT 00 AM neede MCG/ACT Health EST d} Care) Albuterol UNK .0 active Albuterol e CW3 Sulfate 108 2019 {puff Sulfate 108 ([place] (90 Base) 12:00: s_as_ (90 Base) Ri dave MCG/ACT 00 AM neede MCG/ACT Health EST d} Care) levocetiriz Levoce .0 suspend Levoce tirizi eCW3 ine tirizi 2018 {tabl ed ne ([place] dihydrochlo ne 12:00: et_in Dihydrochl or [place] ride 5 MG Dihydr 00 AM _the_ brandon 5 MG He alth Oral Tablet ochlor EST eveni Care) Levocetiriz brandon 5 ng} ine MG Dihydrochlo ride 5 MG Albuterol [place] 3.0 active Albuterol eCW3 0.83 MG/ML rol 2018 {ml_a Sulfate (2.5 ([place] Inhalant Sulfat 12:00: s_nee MG/3ML) Steve er Solution e (2.5 00 AM ded} 0.083% Health Albuterol MG/3ML EST Care) Sulfate ) (2.5 0.083% MG/3ML) 0.083% Levocetiriz UNK .0 suspend Levoceti rizi eCW3 ine 2019 {tabl ed ne ([place] Dihydrochlo 12:00: et_in Dihydrochl or [place] ride 5 MG 00 AM _the_ brandon 5 MG Heal th EST eveni Care) ng} Albuterol UNK .0 active Albuterol e CW3 Sulfate 108 2018 {puff Sulfate 108 ([place] (90 Base) 12:00: s_as_ (90 Base) Ri dave MCG/ACT 00 AM neede MCG/ACT Health EST d} Care) Albuterol UNK .0 active Albuterol e CW3 Sulfate 108 2018 {puff Sulfate 108 ([place] (90 Base) 12:00: s_as_ (90 Base) Ri dave MCG/ACT 00 AM neede MCG/ACT Health EST d} Care) Famotidine Famoti .0 suspend Famotid ine eCW3 20 MG Oral dine 2018 {tabl ed 20 MG ([place] Tablet 20 MG 12:00: et_at [place] 00 AM _bedt Health EDT ime_a Care) s_nee ded} Famotidine Famoti .0 suspend Famotid ine eCW3 20 MG Oral dine 2018 {tabl ed 20 MG ([place] Tablet 20 MG 12:00: et_at [place] 00 AM _bedt Health EDT ime_a Care) s_nee ded} Famotidine Famoti .0 active Famotidi ne eCW3 20 MG Oral dine 2018 {tabl 20 MG ([place] Tablet 20 MG 12:00: et_at [place] 00 AM _bedt Health EDT ime_a Care) s_nee ded} Famotidine Famoti .0 suspend Famotid ine eCW3 20 MG Oral dine 2018 {tabl ed 20 MG ([place] Tablet 20 MG 12:00: et_at [place] 00 AM _bedt Health EDT ime_a Care) s_nee ded} Famotidine UNK .0 active Famotidine eCW3 20 MG 2018 {tabl 20 MG ([place] 12:00: et_at [place] 00 AM _bedt Health EDT ime_a Care) s_nee ded} Fluticasone Flutic .0 active Flutica sone eCW3 Propionate asone 2018 {spra Propionate ( [place] 50 MCG/ACT Propio 12:00: y_in_ 50 MCG/AC T [place] surinder 00 AM each_ Health 50 EDT nostr Care) MCG/AC il} T Pepcid AC UNK .0 suspend Pepcid AC eCW3 Maximum 2018 {tabl ed Maximum ([place] Strength 20 12:00: et} Strength 20 [place] MG 00 AM MG Health EDT Care) Fluticasone Flutic .0 suspend Flutic asone eCW3 Propionate asone 2018 {spra ed Propionate ( [place] 50 MCG/ACT Propio 12:00: y_in_ 50 MCG/AC T [place] surinder 00 AM each_ Health 50 EDT nostr Care) MCG/AC il} T Famotidine Pepcid .0 suspend Pepcid AC eCW3 20 MG Oral AC 2018 {tabl ed Maximum ([facility] Tablet Maximu 12:00: et} Strength 20 Ri dave [Pepcid] m 00 AM MG Health Pepcid AC Stre EDT Care) Maximum th 20 Strength 20 MG MG Fluticasone Flutic .0 suspend Flutic asone eCW3 Propionate asone 2018 {spra ed Propionate ( [place] 50 MCG/ACT Propio 12:00: y_in_ 50 MCG/AC T [place] surinder 00 AM each_ Health 50 EDT nostr Care) MCG/AC il} T Fluticasone Flutic .0 suspend Flutic asone eCW3 Propionate asone 2018 {spra ed Propionate ( [place] 50 MCG/ACT Propio 12:00: y_in_ 50 MCG/AC T [place] surinder 00 AM each_ Health 50 EDT nostr Care) MCG/AC il} T Famotidine Pepcid .0 suspend Pepcid AC eCW3 20 MG Oral AC 2019 {tabl ed Maximum ([facility] Tablet Maximu 12:00: et} Strength 20 Ri dave [Pepcid] m 00 AM MG Health Pepcid AC Streng EDT Care) Maximum th 20 Strength 20 MG MG Famotidine Pepcid .0 active Pepcid A C eCW3 20 MG Oral AC 2019 {tabl Maximum ([facility] Tablet Maximu 12:00: et} Strength 20 Ri dave [Pepcid] m 00 AM MG Health Pepcid AC [facility] EDT Care) Maximum th 20 Strength 20 MG MG Famotidine Pepcid .0 suspend Pepcid AC eCW3 20 MG Oral AC 2019 {tabl ed Maximum ([facility] Tablet Maximu 12:00: et} Strength 20 Ri dave [Pepcid] m 00 AM MG Health Pepcid AC [facility] EDT Care) Maximum th 20 Strength 20 MG MG Fluticasone UNK .0 suspend Fluticas one eCW3 Propionate 2019 {spra ed Propionate ([facility] 50 MCG/ACT 12:00: y_in_ 50 MCG/ACT [place] 00 AM each_ Health EDT nostr Care) il} gabapentin Gabape .0 suspend Gabapen tin eCW3 300 MG Oral ntin 2018 {caps ed 300 MG ([facility] Capsule 300 MG 12:00: ule} [place] Gabapentin 00 AM Health 300 MG EDT Care) 8 HR Acetam 2.0 active Acetaminophe e CW3 Acetaminoph inophe 2019 {tabl n ER 650 M G ([place] en 650 MG n ER 12:00: ets} [place] Extended 650 MG 00 AM Health Release EDT Care) Oral Tablet Acetaminoph en ER 650 MG gabapentin Gabape .0 suspend Gabapen tin eCW3 300 MG Oral ntin 2019 {caps ed 300 MG ([facility] Capsule 300 MG 12:00: ule} [place] Gabapentin 00 AM Health 300 MG EDT Care) gabapentin Gabape .0 active Gabapent in eCW3 300 MG Oral ntin 2019 {caps 300 MG ([place] [place] Capsule 300 MG 12:00: ule} [facility] Gabapentin 00 AM Health 300 MG EDT Care) gabapentin Gabape .0 suspend Gabapen tin eCW3 300 MG Oral ntin 2019 {caps ed 300 MG ([place] [place] Capsule 300 MG 12:00: ule} [facility] Gabapentin 00 AM Health 300 MG EDT Care) gabapentin Gabape .0 suspend Gabapen tin eCW3 300 MG Oral ntin 2019 {caps ed 300 MG ([place] [place] Capsule 300 MG 12:00: ule} [facility] Gabapentin 00 AM Health 300 MG EDT Care) Gabapentin UNK .0 suspend Gabapenti n eCW3 300 MG 2019 {caps ed 300 MG ([place] 12:00: ule} [facility] 00 AM Health EDT Care) Cyclobenzap Cyclob .0 suspend Cyclob enzapr eCW3 rine enzapr 2018 {tabl ed ine HCl 10 ([place] hydrochlori ine 12:00: et_as MG [facility] de 10 MG HCl 10 00 AM _need Health Oral Tablet MG EDT ed} Care) Cyclobenzap rine HCl 10 MG Cyclobenzap Cyclob .0 active Cyclobe nzapr eCW3 rine enzapr 2018 {tabl ine HCl 10 ([place] hydrochlori ine 12:00: et_as MG [facility] de 10 MG HCl 10 00 AM _need Health Oral Tablet MG EDT ed} Care) Cyclobenzap rine HCl 10 MG Cyclobenzap Cyclob .0 active Cyclobe nzapr eCW3 rine enzapr 2018 {tabl ine HCl 10 ([place] hydrochlori ine 12:00: et_as MG [facility] de 10 MG HCl 10 00 AM _need Health Oral Tablet MG EDT ed} Care) Cyclobenzap rine HCl 10 MG Cyclobenzap UNK .0 active Cyclobenz apr eCW3 rine HCl 10 2018 {tabl ine HCl 10 ( [place] MG 12:00: et_as MG [facility] 00 AM _need Health EDT ed} Care) Cyclobenzap Cyclob .0 suspend Cyclob enzapr eCW3 rine enzapr 2018 {tabl ed ine HCl 10 ([place] hydrochlori ine 12:00: et_as MG [facility] de 10 MG HCl 10 00 AM _need Health Oral Tablet MG EDT ed} Care) Cyclobenzap rine HCl 10 MG Cyclobenzap Cyclob .0 suspend Cyclob enzapr eCW3 rine enzapr 2019 {tabl ed ine HCl 10 ([place] hydrochlori ine 12:00: et_as MG [facility] de 10 MG HCl 10 00 AM _need Health Oral Tablet MG EDT ed} Care) Cyclobenzap rine HCl 10 MG Fluconazole Flucon .0 suspend Flucon azole eCW3 200 MG Oral azole 2019 {tabl ed 200 mg ([facility] Tablet 200 mg 12:00: et} [facility] Fluconazole 00 AM Health 200 mg EDT Care) Fluconazole Flucon .0 suspend Flucon azole eCW3 200 MG Oral azole 2019 {tabl ed 200 mg ([facility] Tablet 200 mg 12:00: et} [facility] Fluconazole 00 AM [facility] 200 mg EDT Care) Fluconazole Flucon .0 suspend Flucon azole eCW3 200 MG Oral azole 2019 {tabl ed 200 mg ([facility] Tablet 200 mg 12:00: et} [facility] Fluconazole 00 AM [facility] 200 mg EDT Care) Fluconazole Flucon .0 suspend Flucon azole eCW3 200 MG Oral azole 2019 {tabl ed 200 mg ([facility] Tablet 200 mg 12:00: et} [facility] Fluconazole 00 AM [facility] 200 mg EDT Care) Fluconazole Flucon .0 suspend Flucon azole eCW3 200 MG Oral azole 2019 {tabl ed 200 mg ([facility] Tablet 200 mg 12:00: et} [facility] Fluconazole 00 AM [facility] 200 mg EDT Care) Fluconazole Flucon .0 active Flucona zole eCW3 200 MG Oral azole 2019 {tabl 200 mg ([facility] Tablet 200 mg 12:00: et} [facility] Fluconazole 00 AM [facility] 200 mg EDT Care) Fluconazole UNK .0 suspend Fluconaz ole eCW3 200 mg 2019 {tabl ed 200 mg ([facility] 12:00: et} [facility] 00 AM [facility] EDT [facility]) Artificial Artifi 06/07/ active Artifici al eCW3 Tears 1-0.3 cial 2019 Tears 1-0.3 ( [place] % Tears 12:00: % [facility] 1-0.3 00 AM Health % EST Care) Artificial UNK 06/07/ active Artificial eCW3 Tears 83-15 2019 Tears 83-15 ( [place] % 12:00: % [facility] 00 AM [facility] EST Care) terbinafine Terbin 1.0 active Terbinafi ne eCW3 250 MG Oral afine {tabl HCl 250 MG ([facility] Tablet HCl et} [facility] Terbinafine 250 MG Health HCl 250 MG Care) terbinafine Terbin 1.0 active Terbinafi ne eCW3 250 MG Oral afine {tabl HCl 250 MG ([facility] Tablet HCl et} [facility] Terbinafine 250 MG Health HCl 250 MG Care) terbinafine Terbin 1.0 active Terbinafi ne eCW3 250 MG Oral afine {tabl HCl 250 MG ([place] Tablet HCl et} [facility] Terbinafine 250 MG Health HCl 250 MG Care) terbinafine Terbin 1.0 active Terbinafi ne eCW3 250 MG Oral afine {tabl HCl 250 MG ([facility] Tablet HCl et} [facility] Terbinafine 250 MG Health HCl 250 MG Care) terbinafine Terbin 1.0 active Terbinafi ne eCW3 250 MG Oral afine {tabl HCl 250 MG ([facility] Tablet HCl et} [facility] Terbinafine 250 MG Health HCl 250 MG Care) terbinafine Terbin 1.0 active Terbinafi ne eCW3 250 MG Oral afine {tabl HCl 250 MG ([facility] Tablet HCl et} [facility] Terbinafine 250 MG Health HCl 250 MG Care) terbinafine Terbin 1.0 active Terbinafi ne eCW3 250 MG Oral afine {tabl HCl 250 MG ([place] Tablet HCl et} [facility] Terbinafine 250 MG Health HCl 250 MG Care) Insurance Providers Payer name Policy type Policy ID Covered Covered libertarian's Policy P maria eugenia / Coverage libertarian ID relationship to [facility] Inf ormation type snyder [facility] [id number] 100 HEALTH NON [facility] [id number] 100 [facility] Problems, Conditions, and Diagnoses Code Display Name Description Problem Type Effective Data Dates Source(s) Z71.89 Counseling Encounter to Problem 11/20/2019 eCW3 ([place] discuss test 12:00:00 AM [facility] results EDT [facility]) R92.8 Mammography Abnormal mammogram Problem 11/08/2019 eCW3 ([place] abnormal of right breast 12:00:00 AM [facility] EDT [facility]) J45.30 Mild persistent Mild persistent Problem 09/17/2019 eCW3 ([place] asthma, unspecified asthma, unspecified 12:00:0 0 AM [facility] whether complicated whether complicated EDT Care) J45.30 Mild persistent Mild persistent Problem 09/17/2019 eCW3 ([place] asthma, unspecified asthma, unspecified 12:00:0 0 AM [facility] whether complicated whether complicated EDT Care) G44.51 Hemicrania continua Hemicrania continua Problem 020 eCW3 ([place] 12:00:00 AM [facility] EDT [facility]) G44.51 Hemicrania continua Hemicrania continua Problem 020 eCW3 ([place] 12:00:00 AM [facility] EDT [facility]) G44.51 Hemicrania continua Hemicrania continua Problem 020 eCW3 ([place] 12:00:00 AM [facility] EDT [facility]) H40.023 At high risk for At high risk for Problem 07/18/2019 eC W3 ([place] open angle glaucoma open angle glaucoma 12:00:0 0 AM [facility] of both eyes of both eyes EDT Care) H40.023 At high risk for At high risk for Problem 07/18/2019 eC W3 ([place] open angle glaucoma open angle glaucoma 12:00:0 0 AM [facility] of both eyes of both eyes EDT Care) H40.023 At high risk for At high risk for Problem 07/18/2019 eC W3 ([place] open angle glaucoma open angle glaucoma 12:00:0 0 AM [facility] of both eyes of both eyes EDT Care) M47.816 Arthritis, lumbar Arthritis, lumbar Problem 05/11/2019 eCW3 ([place] spine spine 12:00:00 AM [facility] EST Care) M47.816 Arthritis, lumbar Arthritis, lumbar Problem 05/11/2019 eCW3 ([place] spine spine 12:00:00 AM [facility] EST Care) M47.816 Arthritis, lumbar Arthritis, lumbar Problem 05/11/2019 eCW3 ([place] spine spine 12:00:00 AM [facility] EST Care) G89.29 Other chronic pain Other chronic pain Problem 0 eCW3 ([place] 12:00:00 AM [facility] EST Care) G89.29 Other chronic pain Other chronic pain Problem 0 eCW3 ([place] 12:00:00 AM [facility] EST Care) G89.29 Other chronic pain Other chronic pain Problem 0 eCW3 ([place] 12:00:00 AM [facility] EST Care) G89.29 Other chronic pain Other chronic pain Problem 0 eCW3 ([place] 12:00:00 AM [facility] EST Care) J32.2 Sinusitis chronic, Sinusitis chronic, Problem 9 eCW3 ([place] ethmoidal ethmoidal 12:00:00 AM [facility] EST Care) J32.2 Sinusitis chronic, Sinusitis chronic, Problem 9 eCW3 ([place] ethmoidal ethmoidal 12:00:00 AM [facility] EST Care) J32.2 Sinusitis chronic, Sinusitis chronic, Problem 9 eCW3 ([place] ethmoidal ethmoidal 12:00:00 AM [facility] EST Care) J45.30 Mild persistent Mild persistent Problem 03/15/2019 eCW3 ([place] asthmatic asthmatic 12:00:00 AM [facility] bronchitis without bronchitis without EST Care) complication complication J45.30 Mild persistent Mild persistent Problem 03/15/2019 eCW3 ([place] asthmatic asthmatic 12:00:00 AM [facility] bronchitis without bronchitis without EST Care) complication complication J45.30 Mild persistent Mild persistent Problem 03/15/2019 eCW3 ([place] asthmatic asthmatic 12:00:00 AM [facility] bronchitis without bronchitis without EST Care) complication complication J45.909 Asthma without Asthma without Problem 03/12/2019 eCW3 ( [place] acute exacerbation acute exacerbation 12:00:00 AM [facility] EST Care) J45.909 Asthma without Asthma without Problem 03/12/2019 eCW3 ( [place] acute exacerbation acute exacerbation 12:00:00 AM [facility] EST Care) J45.909 Asthma without Asthma without Problem 03/12/2019 eCW3 ( [place] acute exacerbation acute exacerbation 12:00:00 AM [facility] EST Care) B02.23 Shingles (herpes Shingles (herpes Problem 11/29/2018 eC W3 ([place] zoster) zoster) 12:00:00 AM [facility] polyneuropathy polyneuropathy EDT Care) B02.23 Shingles (herpes Shingles (herpes Problem 11/29/2018 eC W3 ([place] zoster) zoster) 12:00:00 AM [facility] polyneuropathy polyneuropathy EDT Care) B02.23 Shingles (herpes Shingles (herpes Problem 11/29/2018 eC W3 ([place] zoster) zoster) 12:00:00 AM [facility] polyneuropathy polyneuropathy EDT Care) B02.23 Shingles (herpes Shingles (herpes Problem 11/29/2018 eC W3 ([place] zoster) zoster) 12:00:00 AM [facility] polyneuropathy polyneuropathy EDT Care) B02.23 Shingles (herpes Shingles (herpes Problem 11/29/2018 eC W3 ([place] zoster) zoster) 12:00:00 AM [facility] polyneuropathy polyneuropathy EDT Care) M51.16 Intervertebral disc INTERVERTEBRAL DISC Diagnosis [address] [place] [address] disorders with DISORDERS W 08:16:00 AM Medical radiculopathy, RADICULOPATHY, EST Center lumbar region LUMBAR REGION M54.5 Low back pain LOW BACK PAIN Diagnosis 05/20/2019 [facility] 08:16:00 AM Medical EST Center Surgeries/Procedures Procedure Description Date Indications Data Source(s) Oral medication 11/29/2018 eCW3 ([place] [facility] administration, direct 12:00:00 AM EDT He alth Care) observation Results ID Date Data Source [id number] 10/01/2019 12:00:00 AM [facility] Name Value Range Interpretation Code Description Data Deedee rce(s) Supporting Document(s ) 2019-nCoV [facility] RNA XXX SAVANAH+probe- Imp This lab was ordered by PAYAL and reported by [facility] Procedure Social History Code Duration Value Status Description Data Source(s ) Smoking 11/20/2019 12:00:00 Never Smoker completed Never Smoker e CW3 ([facility]) Smoking 11/20/2019 12:00:00 Never Smoker completed Never Smoker e CW3 ([facility]) Smoking 10/08/2019 12:00:00 Never Smoker completed Never Smoker e CW3 ([facility]) Smoking 10/08/2019 12:00:00 Never Smoker completed Never Smoker e CW3 ([facility]) Smoking 07/25/2019 12:00:00 Never Smoker completed Never Smoker e CW3 ([facility]) Smoking 06/27/2019 12:00:00 Never Smoker completed Never Smoker e CW3 ([facility]) Smoking 06/27/2019 12:00:00 Never Smoker completed Never Smoker e CW3 ([facility]) Smoking 04/23/2019 12:00:00 Never Smoker completed Never Smoker e CW3 ([facility]) Smoking 02/01/2019 12:00:00 Never Smoker completed Never Smoker e CW3 ([facility]) Smoking 12/02/2018 12:00:00 Never Smoker completed Never Smoker e CW3 ([facility]) Vital Signs ID Date Data Source UNK Name Value Range Interpretation Code Description Data Source(s) Diastolic blood 83 mm[Hg] 83 mm[Hg] eCW3 ([facility]) Systolic blood 129 mm[Hg] 129 mm[Hg] eCW3 ([facility]) Body temperature 97.9 [degF] 97.9 [degF] eCW3 ( [facility]) Body mass index 28.84 kg/m2 28.84 kg/m2 eCW3 ([facility] (BMI) [Ratio] [facility]) Body weight 138 [lb_av] 138 [lb_av] eCW3 ([facility]) Body height 58.0 [in_i] 58.0 [in_i] eCW3 ([facility]) Diastolic blood 74 mm[Hg] 74 mm[Hg] eCW3 ([facility]) Systolic blood 123 mm[Hg] 123 mm[Hg] eCW3 ([facility]) Body temperature 97.7 [degF] 97.7 [degF] eCW3 ( [facility]) Body mass index 29.05 kg/m2 29.05 kg/m2 eCW3 ([facility] (BMI) [Ratio] [facility]) Body weight 139 [lb_av] 139 [lb_av] eCW3 ([facility]) Body height 58.0 [in_i] 58.0 [in_i] eCW3 ([facility]) Diastolic blood 87 mm[Hg] 87 mm[Hg] eCW3 ([facility]) Systolic blood 139 mm[Hg] 139 mm[Hg] eCW3 ([facility]) Body temperature 98.3 [degF] 98.3 [degF] eCW3 ( [facility]) Body mass index 28.21 kg/m2 28.21 kg/m2 eCW3 ([facility] (BMI) [Ratio] [facility]) Body weight 135 [lb_av] 135 [lb_av] eCW3 ([facility]) Body height 58.0 [in_i] 58.0 [in_i] eCW3 ([facility]) Diastolic blood 67 mm[Hg] 67 mm[Hg] eCW3 ([facility]) Systolic blood 100 mm[Hg] 100 mm[Hg] eCW3 ([facility]) Body temperature 98.1 [degF] 98.1 [degF] eCW3 ( [facility]) Body mass index 28.00 kg/m2 28.00 kg/m2 eCW3 ([facility] (BMI) [Ratio] [facility]) Body weight 134 [lb_av] 134 [lb_av] eCW3 ([facility]) Body height 58.0 [in_i] 58.0 [in_i] eCW3 ([facility]) Patient Treatment Plan of Care Planned Activity Planned Date Details Description Data Source (s) 2 ML Ketorolac Tromethamine 11/20/2019 eCW3 ([place] [facility] 30 MG/ML Cartridge 12:00:00 AM [facility]) 2 ML Ketorolac Tromethamine 11/20/2019 eCW3 ([place] 30 MG/ML Cartridge 12:00:00 AM [facility]) Naproxen 500 MG Oral Tablet 07/25/2019 eCW3 ([facility] 12:00:00 AM [facility]) Cyclobenzaprine 07/25/2019 eCW3 ([facility] hydrochloride 10 MG Oral 12:00:00 AM [facility]) Tablet Albuterol 0.833 MG/ML / 03/15/2019 eCW3 ([place] [facility] Ipratropium Emeigh 0.167 12:00:[address] [facility]) MG/ML Inhalant Solution Albuterol 0.833 MG/ML / 03/15/2019 eCW3 ([place] [facility] Ipratropium Emeigh 0.167 12:00:[address] [facility]) MG/ML Inhalant Solution Albuterol 0.83 MG/ML 03/12/2019 eCW3 ([facility] Inhalant Solution 12:00:[address] [facility]) Albuterol Sulfate 108 (90 03/12/2019 eC W3 ([facility] MCG/ACT 12:00:[address] [facility] ) Albuterol 0.83 MG/ML 03/12/2019 eCW3 ([facility] Inhalant Solution 12:00:[address] [facility]) Albuterol Sulfate 108 (90 03/12/2019 eC W3 ([facility]) MCG/ACT 12:00:[address] [facility] ) Famotidine 20 MG Oral 02/01/2019 eCW3 ( [place] [facility] Tablet 12:00:00 AM [facility]) 8 HR Acetaminophen 650 MG 11/29/2018 eC W3 ([place] [facility] Extended Release Oral 12:00:00 AM [facility]) Tablet gabapentin 300 MG Oral 11/29/2018 eCW3 ([place] [facility] Capsule 12:00:00 AM [facility]) Fluconazole 200 MG Oral 09/10/2018 eCW3 ([place] [facility] Tablet 12:00:00 AM [facility])
[2020-01-19] MEDS ORDERED: predniSONE 10 MG TABLET (UD) ONE (10:52)
[2020-01-19] MEDS ORDERED: predniSONE 20 MG TABLET (UD) ONE (10:52)
[2020-01-19] MEDS ORDERED: predniSONE 20 MG TABLET (UD) PO SCH (11:00)
== END 2020-01-19 11:00 | disposition home or self-care (01) ==
LOC: JER 10:11
DX: R05 Cough (principal); J30.2 Other seasonal allergic rhinitis
CPT/HCPCS: 99284-25

== ENCOUNTER 2021-08-17 21:03 | Inpatient (IN) | payer OTHER ==
[2021-08-17] MEDS ORDERED: DEXAMETHASONE 4 MG TABLET (FP) PO ONE (22:07)
[2021-08-17] MEDS ORDERED: ALBUTEROL SO4 2.5/IPRATROPIUM 0.5 INH SOL 3 ML VIAL.NEB. NEB ONE (22:10)
[2021-08-17] MEDS ORDERED: DEXAMETHASONE 4 MG TABLET (FP) ONE (22:11)
[2021-08-17] MEDS: ALBUTEROL SO4 2.5/IPRATROPIUM 0.5 INH SOL 3 ML VIAL.NEB. NEB SCH ×2 (22:14→22:38)
[2021-08-17 23:20] LABS: BASO % 0.6 % (0-2.0); EOS % 4.8 % (0-4.5); HEMATOCRIT 40.2 % (32.4-45.2); HEMOGLOBIN 13.4 GM/dL (10.7-15.3); LYMPH % 40.4 % (8-40); MCH 30.3 pg (25.7-33.7); MCHC 33.4 g/dl (32.0-36.0); MEAN CELL VOLUME 90.7 fl (80-96); MEAN PLT VOLUME 9.5 fl (7.5-11.1); MONO % 8.3 % (3.8-10.2); NEUT % 45.9 % (42.8-82.8); PLATELET COUNT 256 10^3/uL (134-434); RBC 4.44 M/mm3 (3.60-5.2); RDW 13.4 % (11.6-15.6); WHITE BLOOD COUNT 8.1 K/mm3 (4.0-10.0)
[2021-08-17 23:40] LABS: CALCIUM 9.4 mg/dL (8.5-10.1)
[2021-08-17 23:41] LABS: ALBUMIN 3.7 g/dl (3.4-5.0); BLOOD UREA NITROGEN 11.9 mg/dL (7-18)
[2021-08-17 23:44] LABS: CREATININE 0.6 mg/dL (0.55-1.3)
[2021-08-17 23:45] LABS: BILIRUBIN,TOTAL 0.2 mg/dL (0.2-1)
[2021-08-17 23:46] LABS: TOT PROT 7.8 g/dl (6.4-8.2)
[2021-08-18 00:04] LABS: N-TERMINAL BNP 28.9 pg/ml (5-125)
[2021-08-18] MEDS ORDERED: AZITHROMYCIN IVPB 500 MG in DEXTROSE 5%-WATER - 250 ML IVPB ONE (01:03)
[2021-08-18] MEDS ORDERED: CEFTRIAXONE 1 GM in DEXTROSE 5%-WATER - 100 ML IVPB ONE (01:03)
[2021-08-18] MEDS: ALBUTEROL SO4 2.5/IPRATROPIUM 0.5 INH SOL 3 ML VIAL.NEB. NEB SCH ×5 (01:14→20:31)
[2021-08-18] MEDS ORDERED: CEFTRIAXONE 1 GM/50 ML BAG ONE (01:14)
[2021-08-18] MEDS ORDERED: AZITHROMYCIN IVPB 500 MG/250 ML BAG IVPB ONE (01:15)
[2021-08-18 03:37] VITALS: BMI 27.1
[2021-08-18 08:36] LABS: HEMATOCRIT 39.7 % (32.4-45.2); HEMOGLOBIN 13.5 GM/dL (10.7-15.3); MCH 30.4 pg (25.7-33.7); MEAN CELL VOLUME 89.5 fl (80-96); MEAN PLT VOLUME 9.9 fl (7.5-11.1); PLATELET COUNT 288 10^3/uL (134-434); RBC 4.44 M/mm3 (3.60-5.2); RDW 13.5 % (11.6-15.6); WHITE BLOOD COUNT 7.8 K/mm3 (4.0-10.0)
[2021-08-18] MEDS ORDERED: guaiFENesin/D-METHORPHAN HB 10 ML UNIT-DOSE CUPS PO ONE (09:02)
[2021-08-18] MEDS ORDERED: DEXTROSE 5%-WATER 100 ML IVPB ONE (09:31)
[2021-08-18] MEDS ORDERED: DOXYCYCLINE HYCLATE 100 MG VIAL ONE (09:31)
[2021-08-18 09:32] LABS: CALCIUM 9.5 mg/dL (8.5-10.1)
[2021-08-18 09:33] LABS: ALBUMIN 4.1 g/dl (3.4-5.0); BLOOD UREA NITROGEN 10.8 mg/dL (7-18)
[2021-08-18 09:36] LABS: CREATININE 0.7 mg/dL (0.55-1.3)
[2021-08-18 09:37] LABS: BILIRUBIN,TOTAL 0.3 mg/dL (0.2-1); TOT PROT 8.5 g/dl (6.4-8.2)
[2021-08-18] MEDS: methylPREDNISolone NA SUCC 40 MG/1 ML VIAL IVPUSH SCH ×2 (09:46→18:40)
[2021-08-18] MEDS ORDERED: DOXYCYCLINE INJECTION 100 MG in DEXTROSE 5%-WATER 100 ML IVPB SCH (10:00)
[2021-08-18] MEDS ORDERED: BUDESONIDE/FORMETEROL FUMARATE 80/4.5 mcg INHALER IH SCH (10:00)
[2021-08-18] MEDS: ENOXAPARIN NA (PORCINE) 40 MG/0.4 ML DISP.SYRIN SQ SCH (10:15)
[2021-08-18] MEDS: guaiFENesin/D-METHORPHAN HB 10 ML UNIT-DOSE CUPS PO PRN (18:40)
[2021-08-18] MEDS: ACETAMINOPHEN 325 MG TABLET (FP) PO PRN (18:40)
[2021-08-19] MEDS: methylPREDNISolone NA SUCC 40 MG/1 ML VIAL IVPUSH SCH ×3 (01:27→17:17)
[2021-08-19] MEDS: guaiFENesin/D-METHORPHAN HB 10 ML UNIT-DOSE CUPS PO PRN (01:27)
[2021-08-19 08:08] LABS: HEMATOCRIT 38.9 % (32.4-45.2); HEMOGLOBIN 12.6 GM/dL (10.7-15.3); MCH 29.5 pg (25.7-33.7); MCHC 32.4 g/dl (32.0-36.0); MEAN CELL VOLUME 91.2 fl (80-96); MEAN PLT VOLUME 9.9 fl (7.5-11.1); PLATELET COUNT 293 10^3/uL (134-434); RBC 4.26 M/mm3 (3.60-5.2); RDW 13.6 % (11.6-15.6); WHITE BLOOD COUNT 19.9 K/mm3 (4.0-10.0)
[2021-08-19 08:44] LABS: CALCIUM 9.4 mg/dL (8.5-10.1)
[2021-08-19 08:45] LABS: ALBUMIN 3.6 g/dl (3.4-5.0); BLOOD UREA NITROGEN 17.5 mg/dL (7-18); MAGNESIUM 2.4 mg/dL (1.8-2.4)
[2021-08-19 08:48] LABS: CREATININE 0.5 mg/dL (0.55-1.3); PHOSPHOROUS 4.4 mg/dL (2.5-4.9)
[2021-08-19 08:49] LABS: BILIRUBIN,TOTAL 0.4 mg/dL (0.2-1)
[2021-08-19 09:34] LABS: ANISOCYTOSIS 1+; MACROCYTOSIS 0
[2021-08-19] MEDS: ALBUTEROL SO4 2.5/IPRATROPIUM 0.5 INH SOL 3 ML VIAL.NEB. NEB SCH ×4 (09:40→20:11)
[2021-08-19] MEDS ORDERED: CEFTRIAXONE 1 GM in DEXTROSE 5%-WATER - 50 ML IVPB SCH (10:00)
[2021-08-19] MEDS: ENOXAPARIN NA (PORCINE) 40 MG/0.4 ML DISP.SYRIN SQ SCH (10:41)
[2021-08-19] MEDS ORDERED: BENZOCAINE/MENTH/CETYLPYRD CL 1 EACH LOZENGE MM PRN (11:50)
[2021-08-19] MEDS: AZITHROMYCIN IVPB 250 MG in DEXTROSE 5%-WATER - 250 ML IVPB SCH (12:33)
[2021-08-20] MEDS: methylPREDNISolone NA SUCC 40 MG/1 ML VIAL IVPUSH SCH ×3 (01:32→17:19)
[2021-08-20] MEDS: ALBUTEROL SO4 2.5/IPRATROPIUM 0.5 INH SOL 3 ML VIAL.NEB. NEB SCH ×4 (08:03→20:29)
[2021-08-20 09:15] LABS: HEMATOCRIT 38.9 % (32.4-45.2); HEMOGLOBIN 12.7 GM/dL (10.7-15.3); MCH 29.5 pg (25.7-33.7); MCHC 32.6 g/dl (32.0-36.0); MEAN CELL VOLUME 90.5 fl (80-96); MEAN PLT VOLUME 9.7 fl (7.5-11.1); PLATELET COUNT 319 10^3/uL (134-434); RDW 13.7 % (11.6-15.6); WHITE BLOOD COUNT 19.1 K/mm3 (4.0-10.0)
[2021-08-20] MEDS: ENOXAPARIN NA (PORCINE) 40 MG/0.4 ML DISP.SYRIN SQ SCH (09:24)
[2021-08-20] MEDS: AZITHROMYCIN IVPB 250 MG in DEXTROSE 5%-WATER - 250 ML IVPB SCH (09:33)
[2021-08-20 10:14] LABS: ANISOCYTOSIS 0; MACROCYTOSIS 0
[2021-08-20 10:15] LABS: CALCIUM 9.6 mg/dL (8.5-10.1)
[2021-08-20 10:16] LABS: BLOOD UREA NITROGEN 19.8 mg/dL (7-18)
[2021-08-20 10:19] LABS: CREATININE 0.6 mg/dL (0.55-1.3)
[2021-08-21] MEDS: methylPREDNISolone NA SUCC 40 MG/1 ML VIAL IVPUSH SCH ×3 (01:48→17:16)
[2021-08-21] MEDS: ALBUTEROL SO4 2.5/IPRATROPIUM 0.5 INH SOL 3 ML VIAL.NEB. NEB SCH ×4 (08:00→20:21)
[2021-08-21] MEDS: ENOXAPARIN NA (PORCINE) 40 MG/0.4 ML DISP.SYRIN SQ SCH (09:23)
[2021-08-21] MEDS: AZITHROMYCIN IVPB 250 MG in DEXTROSE 5%-WATER - 250 ML IVPB SCH (09:23)
[2021-08-21] MEDS: ACETAMINOPHEN 325 MG TABLET (FP) PO PRN (09:55)
[2021-08-21 19:06] LABS: SARS-CoV-2 NAA Not Detected (Not Detected)
[2021-08-22] MEDS: methylPREDNISolone NA SUCC 40 MG/1 ML VIAL IVPUSH SCH ×3 (02:19→17:25)
[2021-08-22] MEDS: ALBUTEROL SO4 2.5/IPRATROPIUM 0.5 INH SOL 3 ML VIAL.NEB. NEB SCH ×4 (08:42→20:10)
[2021-08-22] MEDS: ENOXAPARIN NA (PORCINE) 40 MG/0.4 ML DISP.SYRIN SQ SCH ×2 (09:24→09:36)
[2021-08-22] MEDS: AZITHROMYCIN IVPB 250 MG in DEXTROSE 5%-WATER - 250 ML IVPB SCH (09:24)
[2021-08-22] MEDS: ACETAMINOPHEN 325 MG TABLET (FP) PO PRN (09:34)
[2021-08-22 09:49] LABS: HEMATOCRIT 39.2 % (32.4-45.2); HEMOGLOBIN 12.9 GM/dL (10.7-15.3); MCH 29.6 pg (25.7-33.7); MEAN CELL VOLUME 89.6 fl (80-96); MEAN PLT VOLUME 9.2 fl (7.5-11.1); PLATELET COUNT 312 10^3/uL (134-434); RBC 4.38 M/mm3 (3.60-5.2); RDW 13.6 % (11.6-15.6); WHITE BLOOD COUNT 13.8 K/mm3 (4.0-10.0)
[2021-08-22 10:06] LABS: CALCIUM 8.9 mg/dL (8.5-10.1)
[2021-08-22 10:11] LABS: CREATININE 0.7 mg/dL (0.55-1.3)
[2021-08-23] MEDS: methylPREDNISolone NA SUCC 40 MG/1 ML VIAL IVPUSH SCH ×2 (02:08→09:46)
[2021-08-23] MEDS: ALBUTEROL SO4 2.5/IPRATROPIUM 0.5 INH SOL 3 ML VIAL.NEB. NEB SCH ×3 (08:20→15:30)
[2021-08-23 09:08] LABS: HEMATOCRIT 41.8 % (32.4-45.2); HEMOGLOBIN 13.5 GM/dL (10.7-15.3); MCH 29.4 pg (25.7-33.7); MCHC 32.4 g/dl (32.0-36.0); MEAN CELL VOLUME 90.9 fl (80-96); MEAN PLT VOLUME 9.5 fl (7.5-11.1); PLATELET COUNT 343 10^3/uL (134-434); RDW 13.7 % (11.6-15.6); WHITE BLOOD COUNT 14.3 K/mm3 (4.0-10.0)
[2021-08-23 09:38] LABS: BLOOD UREA NITROGEN 16.4 mg/dL (7-18)
[2021-08-23 09:40] LABS: CALCIUM 9.3 mg/dL (8.5-10.1); CREATININE 0.7 mg/dL (0.55-1.3)
[2021-08-23] MEDS: ENOXAPARIN NA (PORCINE) 40 MG/0.4 ML DISP.SYRIN SQ SCH (09:46)
[2021-08-23] MEDS: AZITHROMYCIN IVPB 250 MG in DEXTROSE 5%-WATER - 250 ML IVPB SCH (09:53)
[2021-08-23 15:13] VITALS: BP 136/81; PULSE 92; TEMP 98.2
== END 2021-08-23 16:41 | disposition home or self-care (01) | DRG 140 ==
LOC: JER 21:03 → JERBED 08-18 01:07 → J5S 08-18 02:52
PROVIDERS: ADMIT Internal Medicine; ATTEND Internal Medicine
DX: J44.0 Chronic obstructive pulmonary disease with (acute) lower respiratory infection (principal); J18.9 Pneumonia, unspecified organism; J45.901 Unspecified asthma with (acute) exacerbation; N63.0 Unspecified lump in unspecified breast
CPT/HCPCS: 0241U-QW; 36415; 71275-TC; 80048; 80053; 83735; 83880; 84100; 84484; 85025; 85027; 87040; 87070; 87205; 87804; 87807; 87899; 93005; 93010; 94150; 94640; 94761; 99285-25; C9803-CS; U0003; U0005

== ENCOUNTER 2022-07-10 09:13 | Emergency (ER) | payer OTHER ==
[2022-07-10 09:22] VITALS: BMI 27.9
[2022-07-10] MEDS ORDERED: predniSONE 20 MG TABLET (UD) PO ONE (10:18)
[2022-07-10] MEDS ORDERED: predniSONE 20 MG TABLET (UD) ONE (10:32)
[2022-07-10] MEDS ORDERED: ALBUTEROL SO4 2.5/IPRATROPIUM 0.5 INH SOL 3 ML VIAL.NEB. NEB ONE (10:32)
[2022-07-10] MEDS: ALBUTEROL SO4 2.5/IPRATROPIUM 0.5 INH SOL 3 ML VIAL.NEB. NEB SCH ×3 (10:45→11:15)
[2022-07-10] MEDS ORDERED: ACETAMINOPHEN 325 MG TABLET (FP) PO ONE (11:19)
[2022-07-10] MEDS ORDERED: ACETAMINOPHEN 325 MG TABLET (FP) ONE (12:59)
[2022-07-10 14:07] VITALS: BP 141/83; PULSE 99; RESP 16; TEMP 98.1
== END 2022-07-10 14:08 | disposition home or self-care (01) ==
LOC: JER 09:13
PROC: 3E0F7GC Introduction of Other Therapeutic Substance into Respiratory Tract, Via Natural or Artificial Opening (ICD-10-PCS; principal; 2022-07-10)
DX: J45.901 Unspecified asthma with (acute) exacerbation (principal); R05.9 Cough, unspecified; R06.02 Shortness of breath; M54.6 Pain in thoracic spine; M79.10 Myalgia, unspecified site; J02.9 Acute pharyngitis, unspecified; Z20.822 Contact with and (suspected) exposure to COVID-19
CPT/HCPCS: 0241U-QW; 71046-TC-FY; 99284-25

== ENCOUNTER 2022-07-15 09:43 | Emergency (ER) | payer OTHER ==
[2022-07-15 09:50] VITALS: RESP 18; TEMP 98.1; BMI 27.9
[2022-07-15] MEDS ORDERED: ALBUTEROL SO4 2.5/IPRATROPIUM 0.5 INH SOL 3 ML VIAL.NEB. NEB ONE (10:47)
[2022-07-15] MEDS ORDERED: ALBUTEROL SO4 0.083% IH SOL 2.5 MG/3 ML VIAL.NEB. NEB ONE (11:03)
[2022-07-15 11:29] LABS: BASO % 0.5 % (0-2.0); EOS % 0.3 % (0-4.5); HEMATOCRIT 39.3 % (32.4-45.2); HEMOGLOBIN 13.5 GM/dL (10.7-15.3); LYMPH % 14.6 % (8-40); MCH 30.1 pg (25.7-33.7); MCHC 34.3 g/dl (32.0-36.0); MEAN CELL VOLUME 87.7 fl (80-96); MEAN PLT VOLUME 8.8 fl (7.5-11.1); MONO % 2.3 % (3.8-10.2); NEUT % 82.3 % (42.8-82.8); PLATELET COUNT 316 10^3/uL (134-434); RBC 4.48 M/mm3 (3.60-5.2); RDW 13.5 % (11.6-15.6); WHITE BLOOD COUNT 9.9 K/mm3 (4.0-10.0)
[2022-07-15 11:58] LABS: CALCIUM 9.4 mg/dL (8.5-10.1)
[2022-07-15 11:59] LABS: BLOOD UREA NITROGEN 14.2 mg/dL (7-18)
[2022-07-15 12:02] LABS: CREATININE 0.6 mg/dL (0.55-1.3)
[2022-07-15 12:03] LABS: BILIRUBIN,TOTAL 0.3 mg/dL (0.2-1); TOT PROT 8.2 g/dl (6.4-8.2)
[2022-07-15 13:11] VITALS: BP 142/80; PULSE 82
== END 2022-07-15 13:11 | disposition home or self-care (01) ==
LOC: JER 09:43
PROC: 3E0F7GC Introduction of Other Therapeutic Substance into Respiratory Tract, Via Natural or Artificial Opening (ICD-10-PCS; principal; 2022-07-15)
DX: R05.9 Cough, unspecified (principal)
CPT/HCPCS: 0241U-QW; 36415; 71045-TC-FY; 80053; 84484; 85025; 85379; 93005; 93010; 99285-25

== ENCOUNTER 2023-02-23 10:25 | Emergency (ER) | payer OTHER ==
[2023-02-23 10:39] VITALS: BP 140/83; PULSE 86; RESP 18; TEMP 98.1; BMI 25.3
[2023-02-23] MEDS ORDERED: predniSONE 20 MG TABLET (UD) PO ONE (10:52)
[2023-02-23] MEDS ORDERED: predniSONE 20 MG TABLET (UD) ONE (10:54)
[2023-02-23] MEDS ORDERED: ALBUTEROL SO4 2.5/IPRATROPIUM 0.5 INH SOL 3 ML VIAL.NEB. NEB ONE (10:54)
[2023-02-23] MEDS: ALBUTEROL SO4 2.5/IPRATROPIUM 0.5 INH SOL 3 ML VIAL.NEB. NEB SCH (11:00)
== END 2023-02-23 11:28 | disposition home or self-care (01) ==
LOC: JERFT 10:25
PROC: 3E0F7GC Introduction of Other Therapeutic Substance into Respiratory Tract, Via Natural or Artificial Opening (ICD-10-PCS; principal; 2023-02-23)
DX: J45.21 Mild intermittent asthma with (acute) exacerbation (principal); R06.02 Shortness of breath
CPT/HCPCS: 99283-25

== ENCOUNTER 2023-04-28 08:41 | Emergency (ER) | payer OTHER ==
[2023-04-28 08:52] VITALS: BP 119/78; PULSE 113; RESP 21; TEMP 101.9; BMI 26.2
[2023-04-28] MEDS ORDERED: ACETAMINOPHEN 1000 MG/100 ML BAG IVPB ONE (09:33)
[2023-04-28] MEDS ORDERED: ACETAMINOPHEN INJECTION 100 ML IVPB ONE (09:50)
[2023-04-28] MEDS: ALBUTEROL SO4 2.5/IPRATROPIUM 0.5 INH SOL 3 ML VIAL.NEB. NEB SCH ×2 (10:13→10:15)
[2023-04-28 10:52] LABS: BASO % 0.5 % (0-2.0); EOS % 0.1 % (0-4.5); HEMOGLOBIN 13.1 GM/dL (10.7-15.3); LYMPH % 18.9 % (8-40); MCH 29.5 pg (25.7-33.7); MCHC 33.5 g/dl (32.0-36.0); MEAN CELL VOLUME 88.2 fl (80-96); MEAN PLT VOLUME 9.4 fl (7.5-11.1); MONO % 6.9 % (3.8-10.2); NEUT % 73.6 % (42.8-82.8); PLATELET COUNT 245 10^3/uL (134-434); RBC 4.42 M/mm3 (3.60-5.2); RDW 14.5 % (11.6-15.6); WHITE BLOOD COUNT 7.7 K/mm3 (4.0-10.0)
[2023-04-28 10:54] LABS: POTASSIUM 3.7 mmol/L (3.5-5.1)
[2023-04-28 10:56] LABS: ALBUMIN 3.8 g/dl (3.4-5.0); BLOOD UREA NITROGEN 7.7 mg/dL (7-18); CALCIUM 8.7 mg/dL (8.5-10.1)
[2023-04-28 11:00] LABS: CREATININE 0.7 mg/dL (0.55-1.3)
[2023-04-28 11:02] LABS: BILIRUBIN,TOTAL 0.4 mg/dL (0.2-1); TOT PROT 7.6 g/dl (6.4-8.2)
== END 2023-04-28 12:46 | disposition home or self-care (01) ==
LOC: JER 08:41
PROC: 3E033NZ Introduction of Analgesics, Hypnotics, Sedatives into Peripheral Vein, Percutaneous Approach (ICD-10-PCS; principal; 2023-04-28)
PROC: 3E0F7GC Introduction of Other Therapeutic Substance into Respiratory Tract, Via Natural or Artificial Opening (ICD-10-PCS; 2023-04-28)
DX: J10.1 Influenza due to other identified influenza virus with other respiratory manifestations (principal); M79.10 Myalgia, unspecified site; R68.83 Chills (without fever); R11.10 Vomiting, unspecified; Z20.822 Contact with and (suspected) exposure to COVID-19
CPT/HCPCS: 0241U-QW; 36415; 71045-TC-FY; 80053; 84484; 85025; 93005; 93010; 99285-25

== ENCOUNTER 2023-11-23 13:25 | Emergency (ER) | payer OTHER ==
[2023-11-23 13:53] VITALS: BP 166/89; PULSE 76; RESP 19; TEMP 97.8; BMI 28.5
[2023-11-23] MEDS ORDERED: ACETAMINOPHEN 500 MG TABLET (FP) ONE (14:03)
[2023-11-23] MEDS: ACETAMINOPHEN 500 MG TABLET (FP) PO ONE (14:05)
== END 2023-11-23 14:49 | disposition home or self-care (01) ==
LOC: JER 13:25
DX: S50.11XA Contusion of right forearm, initial encounter (principal); M25.511 Pain in right shoulder; M25.561 Pain in right knee; W17.89XA Other fall from one level to another, initial encounter
CPT/HCPCS: 73030-TC-RT-FY; 73090-TC-RT-FY; 73560-TC-RT-FY; 99284-25

== ENCOUNTER 2024-02-12 09:43 | Emergency (ER) | payer OTHER ==
[2024-02-12 09:54] VITALS: TEMP 98.1; BMI 25.4
[2024-02-12] MEDS ORDERED: ALBUTEROL SO4 0.083% IH SOL 2.5 MG/3 ML VIAL.NEB. NEB ONE (11:32)
[2024-02-12] MEDS: ALBUTEROL SO4 0.083% IH SOL 2.5 MG/3 ML VIAL.NEB. NEB ONE (11:41)
[2024-02-12 13:22] VITALS: BP 144/104; PULSE 74; RESP 15
[2024-02-12 13:43] LABS: HIV INTERPRETATION NEGATIVE (NEGATIVE)
== END 2024-02-12 13:30 | disposition home or self-care (01) ==
LOC: JER 09:43
PROC: 3E0F7GC Introduction of Other Therapeutic Substance into Respiratory Tract, Via Natural or Artificial Opening (ICD-10-PCS; principal; 2024-02-12)
DX: J45.909 Unspecified asthma, uncomplicated (principal); R05.9 Cough, unspecified; R09.81 Nasal congestion
CPT/HCPCS: 36415; 86803; 87389; 99283-25